=== PATIENT | female | born 1945 | race African-American/Black ===

== ENCOUNTER → 2017-07-05 16:50 | Outpatient (CLI) | payer MEDICARE, SELFPAY ==
[2017-07-05 17:23] LABS: Absolute Lymphocyte Count 1.88 X10^3/ul (0.83-4.51); Basophil# 0.02 X10^3/uL; Basophil% 0.4 % (0-1); Eosinophil# 0.07 X10^3/uL; Eosinophils% 1.3 % (0-5); Hematocrit 39.7 % (37-47); Hemoglobin 12.8 g/dl (12.0-15.0); Lymphocyte # 1.88 X10^3/ul (4.0); Lymphocyte % 34.3 % (19-41); Mean Corp Hgb Conc 32.2 g/gl (32-36); Mean Corpuscular Hgb 29.8 pg (27.0-32.0); Mean Corpuscular Volume 92.3 fL (81-99); Mean Platelet Vol. 12.4 fl (6.2-12.0); Monocyte# 0.49 X10^3/uL; Monocyte% 8.9 % (0-10); Neutrophil # 3.01 X10^3/uL (2.7-7.7); Neutrophil % 54.9 % (47-70); Platelet Count 163 K/mm3 (150-450); RBC Distribution Width CV 13.1 % (11.6-14.6); RBC Distribution Width SD 43.4 fl (35.1-43.9); White Blood Count 5.5 K/mm3 (4.4-11.0)
[2017-07-05 17:32] LABS: POSITIVE COUNT NO; POSITIVE DIFFERENTIAL NO; POSITIVE MORPHOLOGY NO
[2017-07-05 17:36] LABS: ALB/GLOB Ratio 1.1 RATIO (0.9-2.4); AST(SGOT) 18 U/L (15-37); Alanine Aminotransfer ALT/SGPT 19 U/L (13-56); Albumin, Serum 3.4 g/dL (3.2-5.0); Alkaline Phosphatase 105 U/L (45-117); Anion Gap 7 (5-15); BUN 10 mg/dL (7-18); BUN/Creat Ratio 9.8 RATIO (10-20); Calcium,Total 8.6 mg/dL (8.5-10.1); Chloride 107 mmol/L (98-107); Creatinine, Serum 1.02 mg/dL (0.55-1.02); EST Glomerular Filtration Rate 57 mL/min (>60); Est Glom Filt Rate - Afr Amer 68 mL/min (>60); Globulin 3.2 g/dL (2.2-4.2); Glucose 106 mg/dL (74-106); Potassium 3.6 mmol/L (3.5-5.1); Protein, Total 6.6 g/dL (6.4-8.2); Sodium Level 144 mmol/L (136-145); Thyroid Stim Hormone (TSH) 1.39 uIU/mL (0.358-3.74); Uric Acid 3.7 mg/dL (2.6-6.0)
[2017-07-07 10:35] LABS: Vitamin D,25 Hydroxy 23.5 ng/mL (19.95-100.01)
== END ==
PROVIDERS: Family Provider Family Medicine Geriatric Medicine; PCP Family Medicine Geriatric Medicine; Visit Provider Family Medicine Geriatric Medicine
DX: E55.9 Vitamin D deficiency, unspecified (principal); I10 Essential (primary) hypertension; M10.9 Gout, unspecified
CPT/HCPCS: 36415; 80053; 82306; 84443; 84550; 85025

== ENCOUNTER → 2017-10-19 16:40 | Outpatient (CLI) | payer MEDICARE, SELFPAY ==
--- NOTE | 2017-10-19 16:40 | DT_ITS ---
This patient was seen during an EMR downtime October 16, 2017 - October 23, 2017. This patient may have a combination of paper and electronic documentation or all paper documentation. All documentation is viewable within the e-chart portion of [employer] for each patient visit.
== END ==
PROVIDERS: Family Provider Family Medicine Geriatric Medicine; PCP Family Medicine Geriatric Medicine; Visit Provider Family Medicine Geriatric Medicine
DX: N39.0 Urinary tract infection, site not specified (principal)
CPT/HCPCS: 87077; 87086; 87088; 87186

== ENCOUNTER → 2018-03-29 13:54 | Outpatient (CLI) | payer MEDICARE, SELFPAY ==
[2017-03-14 15:26] VITALS: BMI 19.7
[2018-03-29 14:15] LABS: Absolute Lymphocyte Count 2.12 X10^3/ul (0.83-4.51); Absolute Neutrophil Count 2.8 X10^3/uL (2.0-7.7); Basophil# 0.03 X10^3/uL; Basophil% 0.6 % (0-1); Eosinophil# 0.06 X10^3/uL; Eosinophils% 1.1 % (0-5); Hematocrit 42.9 % (37-47); Hemoglobin 13.5 g/dl (12.0-15.0); Lymphocyte # 2.12 X10^3/ul (4.0); Mean Corp Hgb Conc 31.5 g/gl (32-36); Mean Corpuscular Hgb 29.2 pg (27.0-32.0); Mean Corpuscular Volume 92.9 fL (81-99); Mean Platelet Vol. 11.9 fl (6.2-12.0); Monocyte# 0.43 X10^3/uL; Monocyte% 7.9 % (0-10); Neutrophil # 2.79 X10^3/uL (2.7-7.7); Neutrophil % 51.2 % (47-70); Platelet Count 168 K/mm3 (150-450); RBC Distribution Width CV 12.9 % (11.6-14.6); RBC Distribution Width SD 42.9 fl (35.1-43.9); Red Blood Count 4.62 M/mm3 (4.2-5.4); White Blood Count 5.4 K/mm3 (4.4-11.0)
[2018-03-29 14:20] LABS: POSITIVE COUNT NO; POSITIVE DIFFERENTIAL NO; POSITIVE MORPHOLOGY NO
[2018-03-29 14:39] LABS: ALB/GLOB Ratio 1.1 RATIO (0.9-2.4); AST(SGOT) 24 U/L (15-37); Alanine Aminotransfer ALT/SGPT 20 U/L (13-56); Albumin, Serum 3.7 g/dL (3.2-5.0); Alkaline Phosphatase 114 U/L (45-117); Anion Gap 8 (5-15); BUN 8 mg/dL (7-18); BUN/Creat Ratio 7.3 RATIO (10-20); Calcium,Total 9.2 mg/dL (8.5-10.1); Chloride 102 mmol/L (98-107); Creatinine, Serum 1.09 mg/dL (0.55-1.02); EST Glomerular Filtration Rate 52 mL/min (>60); Est Glom Filt Rate - Afr Amer 63 mL/min (>60); Globulin 3.4 g/dL (2.2-4.2); Glucose 79 mg/dL (74-106); Potassium 3.7 mmol/L (3.5-5.1); Protein, Total 7.1 g/dL (6.4-8.2); Sodium Level 139 mmol/L (136-145)
== END ==
PROVIDERS: Family Provider Family Medicine Geriatric Medicine; PCP Family Medicine Geriatric Medicine; Visit Provider Family Medicine Geriatric Medicine
DX: N39.0 Urinary tract infection, site not specified (principal); R10.9 Unspecified abdominal pain
CPT/HCPCS: 36415; 80053; 85025; 87086

== ENCOUNTER → 2018-03-29 16:46 | Outpatient (CLI) | payer MEDICARE, SELFPAY ==
--- NOTE | 2018-03-29 16:49 | CT_ITS ---
STUDY: CT ABDOMEN AND PELVIS WITHOUT CONTRAST REASON FOR EXAM: Female, 72 years old. No pelvic pain RADIATION DOSAGE (If Supplied By Facility): CTDIvol = ( 6.40 ) mGy, DLP = ( 265.18 ) mGycm TECHNIQUE: Transaxial images were obtained from the dome of the diaphragm to the symphysis pubis with oral contrast, and without intravenous contrast. Sagittal and coronal images were reconstructed. Individualized dose optimization techniques were used for this CT. COMPARISON: 2014 FINDINGS: The visualized lung bases are unremarkable. The visualized portions of the heart are within normal limits. Normal liver. There are surgical clips in the gallbladder fossa consistent with a prior cholecystectomy. Normal spleen. Normal pancreas. Normal bilateral adrenal glands. Normal right kidney. Normal left kidney. Normal visualized stomach. Normal small intestine. There are multiple colonic diverticula consistent with diverticulosis. There is non-visualization of the appendix. Normal abdominal aorta. Normal inferior vena cava. Normal retroperitoneum. Normal urinary bladder. There is absence of the uterus consistent with a prior hysterectomy. Normal abdominal wall. There are diffuse degenerative changes of the visualized lumbar spine. CT/Abdomen/Pelvis without Cont IMPRESSION: No suspicious solid organ abnormality, previous cholecystectomy. No CT evidence of an acute inflammatory process Colonic diverticulosis No free intraperitoneal fluid, air, or suspicious adenopathy Degenerative bony changes Electronically Signed: Evans Snell MD at 17:40 EST , Service support ,
== END ==
LOC: CT 16:48
PROVIDERS: Family Provider Family Medicine Geriatric Medicine; PCP Family Medicine Geriatric Medicine; Referring Provider Family Medicine Geriatric Medicine; Visit Provider Family Medicine Geriatric Medicine
DX: R10.9 Unspecified abdominal pain (principal); N39.0 Urinary tract infection, site not specified
CPT/HCPCS: 36415; 74176; 80053; 85025; 87086; 87088

== ENCOUNTER 2018-06-07 16:33 | Emergency (ER) | payer MEDICARE, SELFPAY ==
[2018-04-12 16:55] VITALS: BMI 19.9
[2018-06-07 16:35] VITALS: BP 140/90; PULSE 74; RESP 16; TEMP 36.7; O2SAT 99; BMI 19.4
--- NOTE | 2018-06-07 16:46 | CT_ITS ---
STUDY: CT ABDOMEN AND PELVIS WITHOUT CONTRAST REASON FOR EXAM: Female, 72 years old. Abdominal pain. Vaginal pain RADIATION DOSAGE (If Supplied By Facility): CTDIvol = ( 6.08 ) mGy, DLP = ( 261.09 ) mGycm TECHNIQUE: Transaxial images were obtained from the dome of the diaphragm to the symphysis pubis without oral contrast, and without intravenous contrast. Sagittal and coronal images were reconstructed. Individualized dose optimization techniques were used for this CT. COMPARISON: CT of the abdomen and pelvis, March 29, 2018. FINDINGS: The visualized lung bases are unremarkable. The visualized portions of the heart are within normal limits. Normal liver. There are surgical clips in the gallbladder fossa consistent with a prior cholecystectomy. There are multiple benign calcified granulomata of the spleen. Normal pancreas. Normal bilateral adrenal glands. Normal right kidney. Normal left kidney. Normal visualized stomach. Normal small intestine. There is diffuse colonic diverticuli without acute inflammatory change. The appendix is visualized and appears normal. There is diffuse atherosclerotic calcification of the abdominal aorta, without a demonstrated aneurysm. Normal inferior vena cava. Normal retroperitoneum. Normal urinary bladder. Normal vaginal cuff. There is no pelvic lymphadenopathy or mass. No free air or free fluid is seen within the peritoneal cavity. Normal abdominal wall. There is stable degenerative changes of the lumbar spine. CT/Abdomen/Pelvis without Cont IMPRESSION: 1. No acute intra-abdominal or pelvic process or interval change. 2. Diffuse diverticulosis without acute inflammatory change. 3. Status post hysterectomy and cholecystectomy. 4. Atherosclerotic changes of the abdominal aorta. 5. Degenerative changes of the lumbar spine. Electronically Signed: Philippe Mckinley DO at 19:24 EST Tel [phone], Service support ,
[2018-06-07 17:28] LABS: Bacteria 0 SEEN /hpf (None Seen); Mucous, Urine 0 SEEN /hpf (<or=2+); Squamous Epithelial Cells - UA 0 SEEN /hpf (5-10)
[2018-06-07 17:37] VITALS: BP 189/89; PULSE 65; RESP 16; TEMP 37.1; O2SAT 100
--- NOTE | 2018-06-07 17:45 | ED.VISSUMM ---
- ER Visit Summary Date of Service: 06/07/18 Chief Complaint: Abdominal pain History of Present Illness: The patient is a 72 F who has had abdominal pain for a month. She states that she has a burning in the lower part of her abdomen that radiates down into her vaginal area. She denies nausea, vomiting, diarrhea or constipation. She has not had any dysuria. She states she has had some vaginal bleeding that happened for about a week. She states it has been intermittent. She has had a hysterectomy and a cholecystectomy in the past. She denies any fevers. Physical Examination: Vital signs reviewed. HEENT exam unremarkable. Heart is regular rate and rhythm without murmurs. Lungs are clear to auscultation. Abdomen is soft with tenderness in the suprapubic area. Pelvic exam/speculum exam with female research & analytics manager reveals no vaginal bleeding. There are no vaginal or vulvar lesions. extremities reveal no edema. Skin exam normal. Neurologic exam normal. Test Results: Laboratory studies normal including hemoglobin. Urinalysis reveals 0-5 white blood cells. CAT scan reveals chronic changes. Emergency Department Course and Treatment: I am unclear as to the etiology of this bleeding. She is adamant that coming from her vaginal area. I do not see any sources of bleeding at this time. Is possible it could be from atrophic vaginitis. She needs to follow-up with an WET PROCESS ASSISTANT HEAD MILLER. I will put her on a couple of days of antibiotics due to the burning pain in her lower abdomen. Treatment Plan: [] Disposition: Discharge Impression: UTI This note was generated with [employer] dictation software. It may contain incorrect words, spelling, and punctuation that were not noted in review of the chart prior to signing ED Disposition - Plan for ED Patient: Chief Complaint: Complaint Referrals: Eliu Swanson Chi, MD [Primary Care Provider] -
[2018-06-07 17:47] LABS: Color, Urine Yellow (Yellow); Glucose, Dipstick Normal (Normal); Ketone-Dipstick Negative (Negative); Leukocyte Esterase-Dipstick 25 /ul (Negative); Nitrite-Dipstick Negative (Negative); Occult Blood-Urine 10 /ul (Negative); Protein-Dipstick Negative (Negative); Urine Bilirubin Dipstick Negative (Negative); Urine Clarity Clear (Clear); Urine Urobilinogen Normal (Normal)
[2018-06-07 17:53] LABS: Red Blood Cells-Urine 0-5 SEEN /hpf (0-5); White Blood Cells 0-5 SEEN /hpf (0-5)
[2018-06-07 18:07] VITALS: BP 187/66; PULSE 85; RESP 11; TEMP 36.7; O2SAT 96
[2018-06-07 18:12] LABS: Absolute Lymphocyte Count 2.48 X10^3/ul (0.83-4.51); Absolute Neutrophil Count 2.2 X10^3/uL (2.0-7.7); Basophil# 0.02 X10^3/uL; Basophil% 0.4 % (0-1); Eosinophil# 0.09 X10^3/uL; Eosinophils% 1.7 % (0-5); Hematocrit 40.8 % (37-47); Hemoglobin 13.3 g/dl (12.0-15.0); Lymphocyte # 2.48 X10^3/ul (4.0); Lymphocyte % 47.4 % (19-41); Mean Corp Hgb Conc 32.6 g/gl (32-36); Mean Corpuscular Hgb 30.1 pg (27.0-32.0); Mean Corpuscular Volume 92.3 fL (81-99); Mean Platelet Vol. 13.3 fl (6.2-12.0); Monocyte# 0.39 X10^3/uL; Monocyte% 7.5 % (0-10); Neutrophil # 2.23 X10^3/uL (2.7-7.7); Neutrophil % 42.6 % (47-70); Platelet Count 146 K/mm3 (150-450); RBC Distribution Width SD 43.7 fl (35.1-43.9); Red Blood Count 4.42 M/mm3 (4.2-5.4); White Blood Count 5.2 K/mm3 (4.4-11.0)
[2018-06-07 18:15] LABS: Differential Indicated SCAN CRITERIA MET; POSITIVE COUNT YES; POSITIVE DIFFERENTIAL NO; POSITIVE MORPHOLOGY NO
[2018-06-07 18:22] LABS: AST(SGOT) 36 U/L (15-37); Alanine Aminotransfer ALT/SGPT 19 U/L (13-56); Albumin, Serum 3.4 g/dL (3.2-5.0); Alkaline Phosphatase 116 U/L (45-117); Anion Gap 6 (5-15); BUN 11 mg/dL (7-18); BUN/Creat Ratio 11.7 RATIO (10-20); Calcium,Total 8.7 mg/dL (8.5-10.1); Chloride 109 mmol/L (98-107); Creatinine, Serum 0.94 mg/dL (0.55-1.02); EST Glomerular Filtration Rate 62 mL/min (>60); Est Glom Filt Rate - Afr Amer 75 mL/min (>60); Estimated Creatinine Clearance 40.61 ml/min; Globulin 3.5 g/dL (2.2-4.2); Glucose 86 mg/dL (74-106); Potassium 4.4 mmol/L (3.5-5.1); Protein, Total 6.9 g/dL (6.4-8.2); Sodium Level 142 mmol/L (136-145)
[2018-06-07 18:32] LABS: Anisocytosis RARE; Macrocytosis RARE; Platelet Estimate ADEQUATE (ADEQ); Platelet Morphology LARGE
[2018-06-07 18:34] VITALS: BP 143/101; O2SAT 100
[2018-06-07 19:23] VITALS: BP 179/82; PULSE 66; RESP 16; TEMP 36.7; O2SAT 100
--- NOTE | 2018-06-07 19:29 | ED.DEP ---
ED Disposition - Plan for ED Patient: Disposition: Home or Assisted Living Chief Complaint: Complaint Instructions: ED UTI Cystitis Female Prescriptions: Ciprofloxacin [Cipro] 500 mg PO BID #6 tab Referrals: Eliu Swanson Chi, MD [Primary Care Provider] -
[2018-06-07] MEDS: Ciprofloxacin 500 MG Tablet PO (19:45)
[2018-06-07 19:47] VITALS: BP 168/80; PULSE 62; RESP 16; O2SAT 100
== END 2018-06-07 19:47 | disposition home or self-care (01) ==
PROVIDERS: Emergency Provider Emergency Medicine; Family Provider Family Medicine Geriatric Medicine; PCP Family Medicine Geriatric Medicine
DX: N39.0 Urinary tract infection, site not specified (principal); N93.9 Abnormal uterine and vaginal bleeding, unspecified; Z90.49 Acquired absence of other specified parts of digestive tract; Z90.710 Acquired absence of both cervix and uterus
CPT/HCPCS: 74176; 80053; 81001; 85025; 99285; A4216

== ENCOUNTER → 2018-07-02 15:43 | Outpatient (CLI) | payer MEDICARE, SELFPAY ==
[2018-06-07 16:35] VITALS: BMI 19.4
[2018-07-02 16:56] LABS: Absolute Neutrophil Count 2.7 X10^3/uL (2.0-7.7); Basophil# 0.02 X10^3/uL; Basophil% 0.4 % (0-1); Eosinophil# 0.08 X10^3/uL; Eosinophils% 1.4 % (0-5); Hematocrit 39.8 % (37-47); Hemoglobin 12.6 g/dl (12.0-15.0); Lymphocyte % 39.7 % (19-41); Mean Corp Hgb Conc 31.7 g/gl (32-36); Mean Corpuscular Hgb 29.5 pg (27.0-32.0); Mean Corpuscular Volume 93.2 fL (81-99); Monocyte# 0.56 X10^3/uL; Monocyte% 10.1 % (0-10); Neutrophil # 2.68 X10^3/uL (2.7-7.7); Neutrophil % 48.4 % (47-70); Platelet Count 173 K/mm3 (150-450); RBC Distribution Width CV 13.2 % (11.6-14.6); RBC Distribution Width SD 44.6 fl (35.1-43.9); Red Blood Count 4.27 M/mm3 (4.2-5.4); White Blood Count 5.5 K/mm3 (4.4-11.0)
[2018-07-02 16:57] LABS: POSITIVE COUNT NO; POSITIVE DIFFERENTIAL NO; POSITIVE MORPHOLOGY NO
[2018-07-02 17:17] LABS: Vitamin D,25 Hydroxy 16.3 ng/mL (29.95-100.01)
[2018-07-02 17:23] LABS: AST(SGOT) 18 U/L (15-37); Alanine Aminotransfer ALT/SGPT 23 U/L (13-56); Albumin, Serum 3.4 g/dL (3.2-5.0); Alkaline Phosphatase 114 U/L (45-117); Anion Gap 9 (5-15); BUN 15 mg/dL (7-18); BUN/Creat Ratio 15.4 RATIO (10-20); Calcium,Total 8.2 mg/dL (8.5-10.1); Chloride 107 mmol/L (98-107); Creatinine, Serum 0.97 mg/dL (0.55-1.02); EST Glomerular Filtration Rate 60 mL/min (>60); Est Glom Filt Rate - Afr Amer 72 mL/min (>60); Globulin 3.3 g/dL (2.2-4.2); Glucose 128 mg/dL (74-106); Potassium 3.8 mmol/L (3.5-5.1); Protein, Total 6.7 g/dL (6.4-8.2); Sodium Level 138 mmol/L (136-145); Thyroid Stim Hormone (TSH) 1.18 uIU/mL (0.358-3.74); Uric Acid 3.4 mg/dL (2.6-6.0)
== END ==
PROVIDERS: Family Provider Family Medicine Geriatric Medicine; PCP Family Medicine Geriatric Medicine; Visit Provider Family Medicine Geriatric Medicine
DX: E55.9 Vitamin D deficiency, unspecified (principal); M10.9 Gout, unspecified; I10 Essential (primary) hypertension; N39.0 Urinary tract infection, site not specified
CPT/HCPCS: 36415; 80053; 82306; 84443; 84550; 85025; 87077; 87086; 87088; 87186

== ENCOUNTER → 2018-08-23 16:30 | Outpatient (CLI) | payer MEDICARE, SELFPAY ==
--- NOTE | 2018-08-23 16:50 | RAD_ITS ---
STUDY: X-RAY - ABDOMEN/PELVIS REASON FOR EXAM: Female, 73 years old. Lower abdominal pain TECHNIQUE: 3 AP views COMPARISON: None. FINDINGS: Previous cholecystectomy. There is a moderate amount of colonic fecal material. There is no demonstrated free abdominal air. The visualized liver, spleen and kidneys are grossly normal in size and morphology. Normal soft tissue structures. There are diffuse degenerative changes of the visualized lumbar spine. RAD/Abd Inc Decub and/or Erect IMPRESSION: No acute findings, retained stool Electronically Signed: Evans Snell MD at 17:06 EDT , Service support ,
== END ==
PROVIDERS: Family Provider Family Medicine Geriatric Medicine; PCP Family Medicine Geriatric Medicine; Referring Provider Family Medicine Geriatric Medicine; Visit Provider Family Medicine Geriatric Medicine
DX: N39.0 Urinary tract infection, site not specified (principal); R10.9 Unspecified abdominal pain
CPT/HCPCS: 74019; 87086; 87088

== ENCOUNTER 2018-08-25 17:31 | Emergency (ER) | payer MEDICARE, SELFPAY ==
[2018-08-25 17:32] VITALS: BP 154/83; PULSE 72; RESP 16; TEMP 36.7; O2SAT 100; BMI 19.8
--- NOTE | 2018-08-25 18:17 | ED.VIS.DENTA ---
History of Present Illness Chief Complaint: Dental Informant: Patient Onset: Days Context: Sudden Onset Timing: Continuous Quality: Pain right lower molar Location: Right lower molar Current Severity: Mild Maximum Severity: Severe Worsened by: Cold and air Relieved by: - - Nothing Associated Symptoms: - - Patient denies all of these symptoms Narrative: Patient localizes pain to the right lower molar. She denies fever, chills or night sweats. She denies atraumatic fever, murmur, SBE, IV drug use or being immune suppressed. She denies change in voice. Denies drooling. Denies difficulty breathing. She denies inability to open or close her mouth completely. 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: Chronic (2) Segmental and somatic dysfunction of lumbar region Status: Chronic (3) Segmental and somatic dysfunction of thoracic region Status: Chronic Past Medical History - Allergies and Home Meds Allergies/Adverse Reactions: Allergies Iodinated Contrast- Oral and IV Dye [Iodinated Contrast Media - IV Dye] Allergy (Unknown, Verified 08/25/18 17:34) Unknown Penicillins Allergy (Verified 08/25/18 17:34) Swelling Primary Care Physician: Eliu Swanson Chi, MD [Primary Care Provider] - Prior records reviewed: No Surgical History: noncontributory Lives: With Family Smoking Status: Never smoker Alcohol: None Review of Systems General: Denies: Chills, Fever, Malaise, Subjective, Sweats, Weight loss Eyes: Denies: Visual changes - bilaterally, Blurred Vision - bilaterally, Diplopia ENT: Denies: Bilateral ear pain, Rhinorrhea, Sore throat Cardiovascular: Denies: Chest pain Respiratory: Denies: Dyspnea Gastrointestinal: Denies: Nausea, Vomiting Skin: Denies: Rash Neurological: Denies: Headache Hematologic: Denies: Easy bruising, Easy bleeding Physical Exam Vital Signs/Narrative: Vital Signs Temp Pulse Resp BP Pulse Ox 08/25/18 17:32 98.0 F 72 16 154/83 H 100 Inital Vital Signs reviewed: Yes General: Well nourished, Well developed Head: Normocephalic, Atraumatic ENT: Moist mucous membranes, Nasal congestion, No rhinorrhea, TM's clear Mouth/Throat: Normal oral mucosa, Normal posterior oropharynx, Normal Stensen's duct, Focal dental decay, Focal gum swelling, Gingivitis, Tenderness on tooth percussion. Negative for: Normal inspection lips/gums, No dental tenderness, No sublingual edema, Apthous ulcer, Dental trauma, Trismus, Widespread dental decay Neck: Supple, No lymphadenopathy, Nontender, No JVD Cardiovascular: Regular rate, Regular rhythm, No murmurs, Normal S1, Normal S2 Respiratory: No distress, CTA bilaterally, Chest nontender Skin: Normal color, No rash. Negative for: Cyanosis, Jaundice Neurological: Alert, Oriented x3, Cranial nerves II-XII grossly intact, Normal Strength, Normal Sensation Diagnostic/Tx/Re-eval - Medical Decision Making Patient has decay of the second right lower molar with exposure of pulp. The tooth has eroded down to the gumline. There is inflammation of the gum. There is no evidence of submandibular lymphadenopathy. Trachea is midline. There is no stridor. There is no trismus. She was treated with opiate analgesia and antibiotics. She reports allergy to penicillin. She was instructed to follow-up with her dentist. ED Disposition - Plan for ED Patient: Disposition: Home or Assisted Living Diagnosis: Dental abscess Instructions: ED Abscess Dental Prescriptions: Hydrocodone Bitart/Apap 5-325 [[place] 5MG-325MG] 1 tablet PO Q6H PRN PRN 3 Days #10 tablet PRN Reason: Pain Clindamycin HCl [Cleocin] 300 mg PO Q6H #28 capsule Referrals: Eliu Swanson Chi, MD [Primary Care Provider] - Additional Instructions: Your prescription was electronically transmitted to [facility] pharmacy on back [facility]. Call your dentist on Monday to be seen within the next 5-7 days.
--- NOTE | 2018-08-25 18:21 | ED.DCSUM_ITS ---
History of Present Illness Chief Complaint: Dental Informant: Patient Onset: Days Context: Sudden Onset Timing: Continuous Quality: Pain right lower molar Location: Right lower molar Current Severity: Mild Maximum Severity: Severe Worsened by: Cold and air Relieved by: - - Nothing Associated Symptoms: - - Patient denies all of these symptoms Narrative: Patient localizes pain to the right lower molar. She denies fever, chills or night sweats. She denies atraumatic fever, murmur, SBE, IV drug use or being immune suppressed. She denies change in voice. Denies drooling. Denies difficulty breathing. She denies inability to open or close her mouth completely. 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: Chronic (2) Segmental and somatic dysfunction of lumbar region Status: Chronic (3) Segmental and somatic dysfunction of thoracic region Status: Chronic Past Medical History - Allergies and Home Meds Allergies/Adverse Reactions: Allergies Iodinated Contrast- Oral and IV Dye [Iodinated Contrast Media - IV Dye] Allergy (Unknown, Verified 08/25/18 17:34) Unknown Penicillins Allergy (Verified 08/25/18 17:34) Swelling Primary Care Physician: Eliu Swanson Chi, MD [Primary Care Provider] - Prior records reviewed: No Surgical History: noncontributory Lives: With Family Smoking Status: Never smoker Alcohol: None Review of Systems General: Denies: Chills, Fever, Malaise, Subjective, Sweats, Weight loss Eyes: Denies: Visual changes - bilaterally, Blurred Vision - bilaterally, Diplopia ENT: Denies: Bilateral ear pain, Rhinorrhea, Sore throat Cardiovascular: Denies: Chest pain Respiratory: Denies: Dyspnea Gastrointestinal: Denies: Nausea, Vomiting Skin: Denies: Rash Neurological: Denies: Headache Hematologic: Denies: Easy bruising, Easy bleeding Physical Exam Vital Signs/Narrative: Vital Signs Temp Pulse Resp BP Pulse Ox 08/25/18 17:32 98.0 F 72 16 154/83 H 100 Inital Vital Signs reviewed: Yes General: Well nourished, Well developed Head: Normocephalic, Atraumatic ENT: Moist mucous membranes, Nasal congestion, No rhinorrhea, TM's clear Mouth/Throat: Normal oral mucosa, Normal posterior oropharynx, Normal Stensen's duct, Focal dental decay, Focal gum swelling, Gingivitis, Tenderness on tooth percussion. Negative for: Normal inspection lips/gums, No dental tenderness, No sublingual edema, Apthous ulcer, Dental trauma, Trismus, Widespread dental decay Neck: Supple, No lymphadenopathy, Nontender, No JVD Cardiovascular: Regular rate, Regular rhythm, No murmurs, Normal S1, Normal S2 Respiratory: No distress, CTA bilaterally, Chest nontender Skin: Normal color, No rash. Negative for: Cyanosis, Jaundice Neurological: Alert, Oriented x3, Cranial nerves II-XII grossly intact, Normal Strength, Normal Sensation Diagnostic/Tx/Re-eval - Medical Decision Making Patient has decay of the second right lower molar with exposure of pulp. The tooth has eroded down to the gumline. There is inflammation of the gum. There is no evidence of submandibular lymphadenopathy. Trachea is midline. There is no stridor. There is no trismus. She was treated with opiate analgesia and antibiotics. She reports allergy to penicillin. She was instructed to follow- up with her dentist. ED Disposition - Plan for ED Patient: Disposition: Home or Assisted Living Diagnosis: Dental abscess Instructions: ED Abscess Dental Prescriptions: Hydrocodone Bitart/Apap 5-325 [[place] 5MG-325MG] 1 tablet PO Q6H PRN PRN 3 Days #10 tablet PRN Reason: Pain Clindamycin HCl [Cleocin] 300 mg PO Q6H #28 capsule Referrals: Eliu Swanson Chi, MD [Primary Care Provider] - Additional Instructions: Your prescription was electronically transmitted to [facility] pharmacy on back [facility]. Call your dentist on Monday to be seen within the next 5-7 days.
[2018-08-25] MEDS: HYDROcodone Bitartrate/Apap 5/325 Tablet PO (18:38)
[2018-08-25 19:02] VITALS: PULSE 72; RESP 17; O2SAT 99
== END 2018-08-25 19:03 | disposition home or self-care (01) ==
PROVIDERS: Emergency Provider Emergency Medicine; Family Provider Family Medicine Geriatric Medicine; PCP Family Medicine Geriatric Medicine
DX: K04.7 Periapical abscess without sinus (principal); K02.9 Dental caries, unspecified; K05.10 Chronic gingivitis, plaque induced; M99.01 Segmental and somatic dysfunction of cervical region; M99.03 Segmental and somatic dysfunction of lumbar region; M99.02 Segmental and somatic dysfunction of thoracic region
CPT/HCPCS: 99283

== ENCOUNTER 2018-12-08 18:42 | Emergency (ER) | payer MEDICARE, SELFPAY ==
[2018-12-08 18:43] VITALS: BP 149/77; PULSE 72; RESP 16; TEMP 36.4; O2SAT 100; BMI 21.4
--- NOTE | 2018-12-08 19:32 | CT_ITS ---
HISTORY: LOWER ABD PAIN, PRESSURE WITH URINATION, BLOOD IN URINE, HX [place] TECHNIQUE: Helically acquired images were obtained of the abdomen and pelvis without oral or IV contrast. A radiation dose optimization technique was used for this scan. COMPARISON: 06/07/18 CT abdomen and pelvis. FINDINGS: # of images incl. paperwork: 366 LOWER CHEST: No acute or concerning findings lung bases. LIVER: Homogeneous. No focal mass. GALLBLADDER AND BILIARY TREE: Status post cholecystectomy. No intra- or extrahepatic biliary ductal dilation. KIDNEYS AND URETERS: Normal renal size and position. No hydronephrosis. ADRENAL GLANDS: Non-enlarged. SPLEEN: Normal size, no mass. PANCREAS: No pancreatic inflammation or mass. BOWEL: Normal appendix. No obstruction or inflammation of the bowel. Colonic diverticulosis particularly of the descending and sigmoid colon, no diverticulitis. LYMPH NODES: No enlarged mesenteric or retroperitoneal lymph nodes. PERITONEUM: No ascites or free air. No other fluid collection. VESSELS: No abdominal aortic aneurysm. Mild atherosclerosis. URINARY BLADDER: Unremarkable. REPRODUCTIVE ORGANS: Status post hysterectomy. Ovaries unremarkable. ABDOMINAL WALL: No concerning findings. Calcifications in the gluteal subcutaneous fat bilaterally probably from previous injections. BONES: No acute osseous abnormality. Degenerative changes lower lumbar spine. CT/Abdomen/Pelvis without Cont IMPRESSION: No acute findings. Individualized dose optimization techniques were used for this CT. at 2034 Reported and signed by: Alvarado Mullen MD Electronically Signed: Alvarado Mullen, at 20:33 EDT Tel , Service support ,
[2018-12-08] MEDS: 0.9% Normal Saline 1,000 ML 1000 ML IV (19:51)
[2018-12-08 19:53] LABS: Absolute Neutrophil Count 2.2 X10^3/uL (2.0-7.7); Basophil# 0.03 X10^3/uL; Basophil% 0.6 % (0-1); Eosinophil# 0.07 X10^3/uL; Eosinophils% 1.5 % (0-5); Hematocrit 40.1 % (37-47); Lymphocyte % 40.4 % (19-41); Mean Corp Hgb Conc 32.4 g/dL (32-36); Mean Corpuscular Hgb 30.8 pg (27.0-32.0); Mean Platelet Vol. 11.6 fl (6.2-12.0); Monocyte# 0.48 X10^3/uL; Monocyte% 10.2 % (0-10); NRBC Flagged by Analyzer 0 % (0-5); Neutrophil # 2.21 X10^3/uL (2.7-7.7); Neutrophil % 47.1 % (47-70); Platelet Count 150 K/mm3 (150-450); RBC Distribution Width SD 45.6 fl (35.1-43.9); Red Blood Count 4.22 M/mm3 (4.2-5.4); White Blood Count 4.7 K/mm3 (4.4-11.0)
[2018-12-08 20:02] LABS: Bacteria 0 SEEN /hpf (None Seen); Mucous, Urine 0 SEEN /hpf (<or=2+); Red Blood Cells-Urine 0 SEEN /hpf (0-5); Squamous Epithelial Cells - UA 0 SEEN /hpf (5-10)
[2018-12-08 20:03] LABS: Color, Urine Yellow (Yellow); Glucose, Dipstick Normal (Normal); Ketone-Dipstick Negative (Negative); Leukocyte Esterase-Dipstick 100 /ul (Negative); Nitrite-Dipstick Negative (Negative); Occult Blood-Urine 25 /ul (Negative); Protein-Dipstick Negative (Negative); Urine Bilirubin Dipstick Negative (Negative); Urine Clarity Clear (Clear); Urine Urobilinogen Normal (Normal)
[2018-12-08 20:13] LABS: White Blood Cells 0-5 SEEN /hpf (0-5)
[2018-12-08 20:18] LABS: ALB/GLOB Ratio 1.1 RATIO (0.9-2.4); AST(SGOT) 22 U/L (15-37); Alanine Aminotransfer ALT/SGPT 22 U/L (13-56); Albumin, Serum 3.4 g/dL (3.2-5.0); Alkaline Phosphatase 128 U/L (45-117); Anion Gap 4 (5-15); BUN 13 mg/dL (7-18); BUN/Creat Ratio 13.6 RATIO (10-20); Calcium,Total 8.7 mg/dL (8.5-10.1); Chloride 105 mmol/L (98-107); Creatinine, Serum 0.96 mg/dL (0.55-1.02); EST Glomerular Filtration Rate 61 mL/min (>60); Est Glom Filt Rate - Afr Amer 73 mL/min (>60); Estimated Creatinine Clearance 40.66 ml/min; Glucose 90 mg/dL (74-106); Lipase 188 U/L (73-393); Potassium 4.2 mmol/L (3.5-5.1); Protein, Total 6.4 g/dL (6.4-8.2); Sodium Level 139 mmol/L (136-145)
--- NOTE | 2018-12-08 20:57 | ED.VISSUMM ---
- ER Visit Summary Date of Service: 12/08/18 Chief Complaint: Abdominal pain History of Present Illness: The patient is a [address] Swanson. She reports that she has lower abdominal pain that began 2 weeks ago. Is gradually gotten worse. Is an aching, pressure that is 7 out of 10 worsened to 10 currently. Is worsened by movement relieved by remaining still. She reports that she began passing blood in her urine today. She denies any dysuria or frequency. She also reports that she has been spotting today.. She is status post hysterectomy. Also complains of a brown vaginal discharge. Patient denies any fever or chills. No chest pain or shortness of breath. No headache, numbness, or weakness. Physical Examination: Vitals: Stable. Afebrile. General: Well-nourished and well-developed. Head: Normocephalic atraumatic. Neck: Supple, no lymphadenopathy. No JVD. Nontender. Cardiovascular: Regular rate and rhythm. No murmurs. Respiratory: No respiratory distress. Clear to auscultation bilaterally. Abdominal: Soft, moderate suprapubic tenderness to palpation, nondistended, normal bowel sounds. No guarding, rebound, or peritoneal signs. : Refused pelvic exam. Back: Nontender. Extremities: Nontender, no edema. Skin: Normal color, no rash. Neurologic: Alert and oriented ?3. Cranial nerves II through XII are intact. Normal strength and sensation. Psych: Normal affect. Test Results: CBC is normal. Chem-7 is normal. LFTs are marked for alk phos of 128. UA is negative. Clinical Impression(s) from Imaging Studies Abdomen/Pelvis CT 12/08/18 19:32 IMPRESSION: No acute findings. Individualized dose optimization techniques were used for this CT. at 2034 Reported and signed by: Alvarado Mullen MD Electronically Signed: Alvarado Mullen, at 20:33 EDT Tel , Service support , Emergency Department Course and Treatment: Patient refused pain or nausea medications. She is resting comfortably. She had a colonoscopy [address] Bunch. She is never had cystoscopy. Treatment Plan: At this time I do not have an expiration for the patient's symptoms. Given the vaginal discharge and spotting she will be treated for bacterial vaginitis. Instructed to follow-up with Dr. Culver this week for another exam. Follow-up with Dr. Swanson in 1 to 2 days for further evaluation of her abdominal pain. She will be discharged on Flagyl. Return to the emergency department for any worsening symptoms. Disposition: To home in improved and stable condition. Impression: 1. Abdominal pain, uncertain cause. 2. Vaginal bleeding. This note was generated with [employer] software. It may contain incorrect words, spelling, and punctuation that were not noted in review of the chart prior to signing ED Disposition - Plan for ED Patient: Instructions: Vaginal Infection: Bacterial Vaginosis Prescriptions: metroNIDAZOLE [Flagyl] 500 mg PO BID #14 tablet Ondansetron [Zofran Odt] 4 mg PO Q8H PRN PRN #10 tablet PRN Reason: Nausea Referrals: Christen Culver MD [STAFF PHYSICIAN] - 5-7 Days Eliu Swanson Chi, MD [Primary Care Provider] - 2 Days
== END 2018-12-08 21:25 | disposition home or self-care (01) ==
LOC: ED 19:42
PROVIDERS: Emergency Provider Emergency Medicine; Family Provider Family Medicine Geriatric Medicine; PCP Family Medicine Geriatric Medicine
DX: R10.30 Lower abdominal pain, unspecified (principal); N93.9 Abnormal uterine and vaginal bleeding, unspecified; N89.8 Other specified noninflammatory disorders of vagina; R31.9 Hematuria, unspecified; K21.9 Gastro-esophageal reflux disease without esophagitis; Z90.710 Acquired absence of both cervix and uterus
CPT/HCPCS: 74176; 80053; 81001; 83690; 85025; 96360; 99283; J7030; A4216

== ENCOUNTER 2018-12-17 19:12 | Emergency (ER) | payer MEDICARE, SELFPAY ==
[2018-12-17 19:13] VITALS: BP 159/90; PULSE 77; RESP 16; TEMP 36.1; BMI 17.9
--- NOTE | 2018-12-17 21:01 | EKG12_ITS ---
Test Reason : Blood Pressure : / mmHG Vent. Rate : 077 BPM Atrial Rate : 077 BPM P-R Int : 146 ms QRS Dur : 078 ms QT Int : 398 ms P-R-T Axes : 074 002 065 degrees QTc Int : 450 ms Normal sinus rhythm Possible Left atrial enlargement Left ventricular hypertrophy Cannot rule out Septal infarct , age undetermined Abnormal ECG Confirmed by WANDY MACHADO, GISSELL ([id number]), editor managing director SHERRI GALLO ([id number]) on 12/19/2018 10:14:04 AM Referred By: JOVON Confirmed By:GISSELL SABA MD
--- NOTE | 2018-12-17 21:01 | CT_ITS ---
STUDY: CT BRAIN WITHOUT CONTRAST REASON FOR EXAM: Female, 73 years old. Headache and confusion RADIATION DOSAGE (If Supplied By Facility): CTDIvol = ( 44.99 ) mGy, DLP = ( 748.30 ) mGycm TECHNIQUE: Transaxial CT imaging of the brain was performed without administration of intravenous contrast material. Individualized dose optimization techniques were used for this CT. COMPARISON: 04/12/2016 FINDINGS: Normal soft tissue structures. Normal calvarium. Right lens replacement. Normal size ventricles and extra-axial spaces for the patient's age. There are areas of decreased attenuation within the white matter tracts of the supratentorial brain, consistent with microvascular disease changes. Normal age-related changes of the basal ganglia. Normal brainstem. Normal cerebellum. There is no intracranial hemorrhage. There are no findings of an acute ischemic infarction. Normal visualized paranasal sinuses. CT/Brain/Head without Contrast IMPRESSION: No CT evidence of acute infarct or hemorrhage. If there is clinical concern for hyperacute ischemia that is not evident by CT, MRI should be considered if possible. Electronically Signed: Trever Wooten MD at 22:04 EDT Tel , Service support ,
--- NOTE | 2018-12-17 21:02 | ED.VISSUMM ---
- ER Visit Summary Date of Service: 12/17/18 Chief Complaint: Room spinning dizziness History of Present Illness: The patient is a 73 F history of hypertension kidney stone. Currently being treated for UTI on antibiotic. States about 1 to 2 hours prior to arrival she got room spinning dizziness. Denies any significant headache. No head trauma. No chest pain. He has had abdominal pain since she has been on the antibiotic. She was seen in the emergency department approximately a week ago and at that time had a negative CT of the abdomen. She denies fever or chills. She denies any hematemesis. She has had some vaginal bleeding over the last couple of weeks and has a upcoming appointment to see an [employer]IE [employer] MACHINE about that. She is also had some nausea and vomiting. No prior history of stroke or mini stroke. No numbness or weakness in upper or lower extremities. Worse with head movement. Physical Examination: Older female no acute distress. Vital signs are stable afebrile. 2 daughters at bedside. HEENT exam unremarkable. Normal speech. No facial droop. Pupils are round reactive light extra motions are intact. Neck nontender. Lungs clear to auscultation bilaterally. Heart regular rhythm no murmur. Abdomen is soft. There are no peritoneal signs. She has mild epigastric and left upper quadrant tenderness. She is moving all 4 extremities. They are neurovascularly intact. 5/5 campus security officer strength. Dorsi plantarflexion intact. Calves are nontender without edema. Neurologically she is awake and alert. She has no focal motor or sensory deficits. She has normal campus security officer strength. Normal fingertip to nose. Normal dorsi and plantar flexion. NIH score is 0. Normal speech. No facial droop. Test Results: CBC normal white count of 5. Hemoglobin 13. Chemistries normal normal creatinine and gap. Orthostatic vital signs negative. EKG sinus rhythm rate of 77 no signs of ND, ischemia or dysrhythmia. CT brain read by the radiologist and reviewed by me showed no acute abnormality. Emergency Department Course and Treatment: Patient with dizziness is consistent with vertigo. Is worse with head movement. Otherwise her exam is unremarkable other than abdominal pain which she has had and recently had a negative CT of the abdomen before. Patient will be treated with p.o. Valium. Repeat exam at 2300 patient is feeling much better. She is sleepy from the Valium but her dizziness is much improved. Exam remains normal. I went over all test results with her and her one daughter that is in the room at this time. They are comfortable with her being discharged. I did do ear exam of both ears are unremarkable. No wax impaction. TMs are normal. Treatment Plan: Antivert as needed for dizziness. Follow-up as needed. Return if worse Disposition: Discharge Impression: Acute dizziness and vertigo. This note was generated with [employer] dictation software. It may contain incorrect words, spelling, and punctuation that were not noted in review of the chart prior to signing ED Disposition - Plan for ED Patient: Referrals: Eliu Swanson Chi, MD [Primary Care Provider] -
[2018-12-17 21:13] VITALS: BP 149/87; PULSE 80; O2SAT 100
[2018-12-17] MEDS: diazePAM 5 MG Tablet PO (21:18)
[2018-12-17 21:26] LABS: Absolute Lymphocyte Count 1.74 X10^3/uL (0.83-4.51); Basophil# 0.04 X10^3/uL; Basophil% 0.7 % (0-1); Eosinophil# 0.06 X10^3/uL; Eosinophils% 1.1 % (0-5); Hematocrit 42.6 % (37-47); Hemoglobin 13.9 g/dL (12.0-15.0); Lymphocyte # 1.74 X10^3/ul (4.0); Lymphocyte % 32.3 % (19-41); Mean Corp Hgb Conc 32.6 g/dL (32-36); Mean Corpuscular Hgb 30.2 pg (27.0-32.0); Mean Corpuscular Volume 92.4 fL (81-99); Monocyte# 0.56 X10^3/uL; Monocyte% 10.4 % (0-10); NRBC Flagged by Analyzer 0 % (0-5); Neutrophil # 2.98 X10^3/uL (2.7-7.7); Neutrophil % 55.3 % (47-70); Platelet Count 157 K/mm3 (150-450); RBC Distribution Width CV 12.6 % (11.6-14.6); RBC Distribution Width SD 42.8 fl (35.1-43.9); Red Blood Count 4.61 M/mm3 (4.2-5.4); White Blood Count 5.4 K/mm3 (4.4-11.0)
[2018-12-17 21:47] LABS: Anion Gap 4 (5-15); BUN 20 mg/dL (7-18); BUN/Creat Ratio 19.4 RATIO (10-20); Chloride 106 mmol/L (98-107); Creatinine, Serum 1.03 mg/dL (0.55-1.02); EST Glomerular Filtration Rate 56 mL/min (>60); Est Glom Filt Rate - Afr Amer 67 mL/min (>60); Estimated Creatinine Clearance 33.66 ml/min; Glucose 94 mg/dL (74-106); Potassium 4.3 mmol/L (3.5-5.1); Sodium Level 140 mmol/L (136-145)
[2018-12-17 21:58] VITALS: BP 130/80; BP 145/86; BP 151/110; PULSE 72; PULSE 78; PULSE 80
--- NOTE | 2018-12-17 22:04 | ED.RN ---
pt weak in the knees when being stood up for orthos. bp taken 2m after sitting bp taken.
[2018-12-17 23:03] VITALS: BP 146/83; PULSE 65; O2SAT 100
--- NOTE | 2018-12-17 23:05 | ED.DEP ---
ED Disposition - Plan for ED Patient: Disposition: Home or Assisted Living Instructions: Benign Positional Vertigo Prescriptions: Meclizine HCl [Antivert] 25 mg PO 4X/DAY PRN PRN #20 tab PRN Reason: Dizziness Prescription Printed Referrals: Eliu Swanson Chi, MD [Primary Care Provider] - 3-5 Days if not improving Additional Instructions: 20 of fluids and rest. Antivert as needed for your dizziness which appears to be vertigo. Follow-up with your doctor if not improving. Return to the ER if you are feeling a lot worse or develop weakness in your arms or legs or trouble speaking but at this time there is no signs of stroke.
== END 2018-12-17 23:20 | disposition home or self-care (01) ==
PROVIDERS: Emergency Provider Emergency Medicine; Family Provider Family Medicine Geriatric Medicine; PCP Family Medicine Geriatric Medicine
DX: R42 Dizziness and giddiness (principal); N39.0 Urinary tract infection, site not specified; N95.0 Postmenopausal bleeding; I10 Essential (primary) hypertension; Z87.442 Personal history of urinary calculi; Z79.899 Other long term (current) drug therapy
CPT/HCPCS: 70450; 80048; 85025; 93005; 99284; A4216

== ENCOUNTER → 2019-01-03 | Outpatient (CLI) | payer MEDICARE, SELFPAY ==
[2018-12-17 19:13] VITALS: BMI 17.9
[2019-01-03 18:05] LABS: Absolute Lymphocyte Count 1.55 X10^3/uL (0.83-4.51); Absolute Neutrophil Count 2.5 X10^3/uL (2.0-7.7); Basophil# 0.03 X10^3/uL; Basophil% 0.7 % (0-1); Eosinophil# 0.05 X10^3/uL; Eosinophils% 1.1 % (0-5); Hematocrit 44.6 % (37-47); Hemoglobin 13.8 g/dL (12.0-15.0); Lymphocyte # 1.55 X10^3/ul (4.0); Lymphocyte % 34.5 % (19-41); Mean Corp Hgb Conc 30.9 g/dL (32-36); Mean Corpuscular Hgb 29.4 pg (27.0-32.0); Mean Corpuscular Volume 95.1 fL (81-99); Mean Platelet Vol. 12.7 fl (6.2-12.0); Monocyte# 0.34 X10^3/uL; Monocyte% 7.6 % (0-10); NRBC Flagged by Analyzer 0 % (0-5); Neutrophil # 2.51 X10^3/uL (2.7-7.7); Neutrophil % 55.9 % (47-70); Platelet Count 156 K/mm3 (150-450); RBC Distribution Width CV 12.8 % (11.6-14.6); RBC Distribution Width SD 44.7 fl (35.1-43.9); Red Blood Count 4.69 M/mm3 (4.2-5.4); White Blood Count 4.5 K/mm3 (4.4-11.0)
[2019-01-03 18:13] LABS: Vitamin D,25 Hydroxy 17.3 ng/mL (29.95-100.01)
[2019-01-03 18:18] LABS: AST(SGOT) 22 U/L (15-37); Alanine Aminotransfer ALT/SGPT 24 U/L (13-56); Albumin, Serum 3.5 g/dL (3.2-5.0); Alkaline Phosphatase 108 U/L (45-117); Anion Gap 5 (5-15); BUN 11 mg/dL (7-18); BUN/Creat Ratio 10.4 RATIO (10-20); Calcium,Total 8.9 mg/dL (8.5-10.1); Chloride 109 mmol/L (98-107); Creatinine, Serum 1.06 mg/dL (0.55-1.02); EST Glomerular Filtration Rate 54 mL/min (>60); Est Glom Filt Rate - Afr Amer 65 mL/min (>60); Globulin 3.6 g/dL (2.2-4.2); Glucose 88 mg/dL (74-106); Potassium 3.7 mmol/L (3.5-5.1); Protein, Total 7.1 g/dL (6.4-8.2); Sodium Level 144 mmol/L (136-145); Uric Acid 3.8 mg/dL (2.6-6.0)
== END | disposition home or self-care (01) ==
PROVIDERS: Family Provider Family Medicine Geriatric Medicine; PCP Family Medicine Geriatric Medicine; Visit Provider Family Medicine Geriatric Medicine
DX: E55.9 Vitamin D deficiency, unspecified (principal); M10.9 Gout, unspecified; E78.49 Other hyperlipidemia
CPT/HCPCS: 36415; 80053; 82306; 84443; 84550; 85025

== ENCOUNTER 2020-09-11 13:10 | Emergency (ER) | payer MEDICARE, SELFPAY ==
[2020-09-11 13:14] VITALS: BP 217/105; PULSE 72; RESP 22; TEMP 36.8; O2SAT 100; BMI 19.3
--- NOTE | 2020-09-11 13:48 | EKG12_ITS ---
Test Reason : CHEST PAIN Blood Pressure : / mmHG Vent. Rate : 064 BPM Atrial Rate : 064 BPM P-R Int : 138 ms QRS Dur : 086 ms QT Int : 438 ms P-R-T Axes : 070 -04 063 degrees QTc Int : 451 ms Normal sinus rhythm Normal ECG Confirmed by WANDY MACHADO, GISSELL ([id number]), editor farm journal SHERRI GALLO ([id number]) on 09/15/2020 11:02:13 AM Referred By: RAINER Confirmed By:GISSELL SABA MD
--- NOTE | 2020-09-11 13:54 | EX.ED.DYSGE1 ---
HPI History of Present Illness Chief Complaint: Dizziness Narrative Narrative: Patient is a 75-year-old female present with dizziness and weight loss. EMS was called today because patient was feeling dizzy. She states she was feeling lightheaded like she is going to pass out. This happened about 2 hours prior to arrival. Patient states she felt like she could not stand up. Patient notes she woke up around 10 AM. She did feel if she was going to pass out. Her symptoms seem worse with movement and head movement. She notes is been going on for couple months but is been worse over the past 3 weeks. She notes she normally has a vision changes which consist of blurry vision. She denies any current headache. She denies any chest pain, shortness of breath or cough. She notes she does sometimes will short of breath and get dyspnea on exertion. Denies any swelling of her legs. She has been having least 20 pound weight loss over the last month. Daughter states that she vomits after every meal. She not take any medications and is not seen a doctor in a couple years because she does not like to see doctors. Patient denies any change in her bowel habits. She denies any black or bloody stools. [facility] Medical History (Updated 09/11/20 @ 18:[address] Katarina Jefferson, DO) Anxiety Arthritis Depression GERD (gastroesophageal reflux disease) Headaches, cluster High cholesterol Hypertension Home Medications hydrochlorothiazide 25 mg PO DAILY #14 tab 09/11/20 [Rx Last Taken Unknown] ondansetron 4 mg PO Q8H PRN #14 tab 09/11/20 [Rx Last Taken Unknown] Allergy/AdvReac Type Severity Reaction Status Date / Time Iodinated Contrast Media Allergy Unknown Unknown Verified 09/11/20 13:19 [Iodinated Contrast Media - IV Dye] Penicillins Allergy Swelling Verified 09/11/20 13:19 Surgical History H/O: hysterectomy History of cholecystectomy History of tonsillectomy Social History (Updated 04/16/18 @ 15:[address] Rasheeda Degroot, MS) Smoking Status: Never smoker alcohol intake: never substance use type: does not use what type of physical activity do you participate in: none ROS ROS ED Constitutional Constitutional ED: Reports weight loss; Denies chills, fever(s) or malaise Eyes Eyes: Reports blurry vision; Denies change in vision, diplopia or loss of vision ENT ENT ED: Denies ear pain, rhinorrhea or sore throat Cardiovascular Cardiovascular: Denies chest pain or dizziness Respiratory/Chest Respiratory/Chest: Reports dyspnea on exertion; Denies cough, dyspnea or sputum Gastrointestinal Gastrointestinal: Reports nausea and vomiting; Denies abdominal pain Genitourinary Genitourinary ED: Denies dysuria or hematuria Musculoskeletal Musculoskeletal: Denies arthralgias or myalgias Integumentary Denies rash or wounds Neurologic Neurologic: Reports weakness; Denies focal weakness or headache(s) Psychiatric Psychiatric: Denies anxiety, behavioral changes or depression EXAM Physical Exam Const Vital Signs: 09/11/20 13:14 09/11/20 15:10 09/11/20 17:00 Temperature 98.2 F Temperature Source Oral Pulse Rate 72 68 82 Pulse Rate [Standing] Respiratory Rate 22 H 19 H 20 H Respiratory Effort Normal Non-Labored Blood Pressure 217/105 H 195/91 H 211/96 H Blood Pressure [Standing] Blood Pressure Mean 142 125 134 Blood Pressure Mean [Standing] Pulse Ox 100 100 100 Oxygen Delivery Method Room Air Room Air Room Air 09/11/20 17:09 09/11/20 18:11 Temperature Temperature Source Pulse Rate 74 Pulse Rate [Standing] 84 Respiratory Rate 19 H Respiratory Effort Blood Pressure 198/112 H Blood Pressure [Standing] 211/96 H Blood Pressure Mean Blood Pressure Mean [Standing] 134 Pulse Ox 99 Oxygen Delivery Method Positive well nourished, well developed and no apparent distress General Appearance ED: well developed HEENT Reports normocephalic, TM's clear and moist mucous membranes atraumatic Nose: no nasal discharge General Ear: hearing grossly impaired External Ear: external ears normal Tympanic Membrane ED: Yes TM's clear Mouth ED: Yes moist mucous membranes abnormal Mouth: moist mucous membranes abnormal Eyes PERRL and EOMs intact bilaterally Neck full ROM, supple, no meningeal signs and no JVD General: Negative for tenderness Chest Wall inspection of chest normal Resp normal respiratory effort, normal air movement and clear to auscultation bilaterally Cardio regular rate, regular rhythm and no murmurs GI normal to inspection, nondistended, normoactive bowel sounds and no masses Extremity normal to inspection and full ROM General Extremety ED: Negative for edema General Extremity: Negative for edema Neuro oriented x3 Neuro Narrative: No focal neurologic deficits. Patient does seem forgetful at times. No nystagmus. Normal [id number]. No truncal ataxia. Cannot reproduce dizziness with head movement. Sensorium / Orientation: alert Psych mental status grossly normal and thought process normal Mood & Affect: anxious; Negative for depressed Skin no rashes or lesions noted and no wounds MDM MDM MDM Narrative Medical decision making narrative: Patient is evaluated for weakness and dizziness. Initially patient me to see like this is been going on for 2 hours but she is actually been having the symptoms for weeks if not months. Patient is a history of medication noncompliance. She declines nausea medicine in the ER afterwards ordered. She does complain of a headache so she is given Tylenol. She is given hydrochlorothiazide for her hypertension as it does not improve while in the ER. I do not think she is having a stroke. This does not seem to be a hypertensive emergency. Patient been off her blood pressure medication for years. Work-up is largely negative. Since patient has severe reaction to contrast IV contrast cannot be used. Patient is refusing premedication with Benadryl and steroids. CT of the abdomen is limited but does not show any acute process. No signs of obstruction. Given patient difficulty swallowing and frequent vomiting is heavily encouraged that she follow-up with surgery as she will likely need an EGD. I did discuss the case with her old primary care doctor, Dr. Swanson, who states he be happy to see her in the office next week. Patient be given a short course of Zofran as well as hydrochlorothiazide on discharge. She is not orthostatic and no longer seems to be dizzy. I do not suspect a posterior circulation stroke. Patient is comfortable discharge home. She is not have any significant laboratory normalities insistent with malnutrition or dehydration. Patient is counseled on signs and symptoms requiring return to the emergency room. Patient verbalizes agreement and understand this plan. Patient discharged home in stable and improved condition. Lab Data Labs: Laboratory Results - last 24 hr 09/11/20 09/11/20 09/11/20 13:55 14:25 14:25 WBC 5.6 RBC 5.04 Hgb 15.0 Hct 47.3 H MCV 93.8 MCH 29.8 MCHC 31.7 L RDW Std Deviation 41.4 RDW Coeff of Trini 12.0 Plt Count 161 MPV 12.1 H Immature Gran % (Auto) 0.200 Neut % (Auto) 60.8 Lymph % (Auto) 30.2 Geary % (Auto) 7.2 Eos % (Auto) 0.9 Baso % (Auto) 0.7 Absolute Neuts (auto) 3.4 Absolute Lymphs (auto) 1.68 Nucleated RBC % 0 PT 12.4 INR 1.0 Sodium Potassium Chloride Carbon Dioxide Anion Gap BUN Creatinine Estim Creat Clear Calc Est GFR (MDRD) Af Amer Est GFR (MDRD) Non-Af BUN/Creatinine Ratio Glucose Lactic Acid Calcium Total Bilirubin Direct Bilirubin AST ALT Alkaline Phosphatase Troponin I B-Natriuretic Peptide Total Protein Albumin Globulin Lipase Urine Color Straw Urine Clarity Clear Urine pH 8.0 Ur Specific Boss 1.015 Urine Protein Negative Urine Glucose (UA) Normal Urine Ketones Negative Urine Occult Blood 10 H Urine Nitrite Negative Urine Bilirubin Negative Urine Urobilinogen Normal Ur Leukocyte Esterase 25 H Urine RBC 0 SEEN Urine WBC 0 SEEN Ur Squamous Epith Cells 0-5 SEEN Urine Bacteria RARE Urine Mucus 0 SEEN 09/11/20 09/11/20 09/11/20 14:25 14:25 14:25 WBC RBC Hgb Hct MCV MCH MCHC RDW Std Deviation RDW Coeff of Trini Plt Count MPV Immature Gran % (Auto) Neut % (Auto) Lymph % (Auto) Geary % (Auto) Eos % (Auto) Baso % (Auto) Absolute Neuts (auto) Absolute Lymphs (auto) Nucleated RBC % PT INR Sodium 142 Potassium 3.6 Chloride 107 Carbon Dioxide 32.0 Anion Gap 3 L BUN 14 Creatinine 1.02 Estim Creat Clear Calc 37.85 Est GFR (MDRD) Af Amer 68 Est GFR (MDRD) Non-Af 56 L BUN/Creatinine Ratio 13.7 Glucose 88 Lactic Acid 1.5 Calcium 9.6 Total Bilirubin 0.60 Direct Bilirubin 0.19 AST 56 H ALT 40 Alkaline Phosphatase 114 Troponin I < 0.015 B-Natriuretic Peptide 70.4 Total Protein 7.8 Albumin 4.1 Globulin 3.7 Lipase 122 Urine Color Urine Clarity Urine pH Ur Specific Boss Urine Protein Urine Glucose (UA) Urine Ketones Urine Occult Blood Urine Nitrite Urine Bilirubin Urine Urobilinogen Ur Leukocyte Esterase Urine RBC Urine WBC Ur Squamous Epith Cells Urine Bacteria Urine Mucus Radiography Chest X-Ray - ED: 1 View, Read by ED Physician, Read by Radiologist and No Acute Disease Diagnostic Testing: Radiology Impression Chest X-Ray 04/30/21 15:08 IMPRESSION: Hyperinflation. The lungs are clear. Electronically Signed: Hermilo Morrison MD at 15:23 EDT , Service support , Brain CT 09/11/20 15:10 IMPRESSION: Chronic involutional changes of the brain. Electronically Signed: Hermilo Morrison MD at 15:23 EDT , Service support , Abdomen/Pelvis CT 09/11/20 15:40 IMPRESSION: There is no definite acute abnormality seen. However evaluation of the GI tract is very limited without oral contrast. Enteritis and colitis cannot be excluded. Electronically Signed: Bhavik Cavazos MD at 16:43 EDT , Service support , Rhythm Strip Rhythm Strip: Sinus Rhythm Rate: 64 Ectopy: None EKG Initial EKG: Attestation: I personally reviewed and interpreted this EKG as follows: Interpretation: Sinus Rhythm Comments: Normal sinus rhythm at a rate of 64 Left axis deviation Normal intervals Normal ST segments Treatment and Re-Evaluation Comments:: Patient ordered IV Zofran but declines. Discharge Plan Triage Chief Complaint: Dizziness ED Provider: Katarina Jefferson Dx/Rx/DC Orders Clinical Impression: Generalized weakness, Vomiting, Hypertension Instructions: ED Dizziness, Uncertain Cause, ED Hypertension, Established Prescriptions: New hydrochlorothiazide 25 mg tablet 25 mg PO DAILY Qty: 14 RF: 0 ondansetron 4 mg tablet,disintegrating 4 mg PO Q8H PRN (Reason: nausea and vomiting) Qty: 14 RF: 0 Primary Care Provider: Eliu Swanson Chi Referrals: Virginie Alex MD [STAFF PHYSICIAN] - Eliu Swanson Chi, MD [Primary Care Provider] - Activity Restrictions/Additional Instructions: Please follow-up with your primary care doctor for further management of your symptoms as well as your blood pressure. You have been started on a blood pressure medication today. You have been referred to a surgeon, Dr. Alex, for further evaluation of your stomach issues and vomiting. I think you probably need a scope to look inside your stomach to see what is causing your symptoms. Disposition Disposition: Home, self care Discharge Date/Time: 09/11/20 18:12
[2020-09-11 14:03] LABS: Color, Urine Straw (Yellow); Glucose, Dipstick Normal (Normal); Ketone-Dipstick Negative (Negative); Leukocyte Esterase-Dipstick 25 /ul (Negative); Mucous, Urine 0 SEEN /hpf (<or=2+); Nitrite-Dipstick Negative (Negative); Occult Blood-Urine 10 /ul (Negative); Protein-Dipstick Negative (Negative); Red Blood Cells-Urine 0 SEEN /hpf (0-5); Specific Gravity, Urine 1.015 (1.002-1.030); Urine Bilirubin Dipstick Negative (Negative); Urine Clarity Clear (Clear); Urine Urobilinogen Normal (Normal); White Blood Cells 0 SEEN /hpf (0-5)
[2020-09-11 14:21] LABS: Bacteria RARE /hpf (None Seen); Squamous Epithelial Cells - UA 0-5 SEEN /hpf (5-10)
[2020-09-11 14:39] LABS: Absolute Lymphocyte Count 1.68 X10^3/uL (0.83-4.51); Absolute Neutrophil Count 3.4 X10^3/uL (2.0-7.7); Basophil# 0.04 X10^3/uL; Basophil% 0.7 % (0-1); Eosinophil# 0.05 X10^3/uL; Eosinophils% 0.9 % (0-5); Hematocrit 47.3 % (37-47); Lymphocyte # 1.68 X10^3/ul (0.83-4.51); Lymphocyte % 30.2 % (19-41); Mean Corp Hgb Conc 31.7 g/dL (32-36); Mean Corpuscular Hgb 29.8 pg (27.0-32.0); Mean Corpuscular Volume 93.8 fL (81-99); Mean Platelet Vol. 12.1 fl (6.2-12.0); Monocyte% 7.2 % (0-10); NRBC Flagged by Analyzer 0 % (0-5); Neutrophil # 3.38 X10^3/uL (2.7-7.7); Neutrophil % 60.8 % (47-70); Platelet Count 161 K/mm3 (150-450); RBC Distribution Width SD 41.4 fl (35.1-43.9); Red Blood Count 5.04 M/mm3 (4.2-5.4); White Blood Count 5.6 K/mm3 (4.4-11.0)
[2020-09-11 14:52] LABS: Prothrombin Time (Protime)PT. 12.4 SECONDS (11.7-14.9)
[2020-09-11 14:54] LABS: BNP,B-Type NATRIURETIC PEPTIDE 70.4 pg/mL (0-100)
[2020-09-11 14:58] LABS: AST(SGOT) 56 U/L (15-37); Alanine Aminotransfer ALT/SGPT 40 U/L (13-56); Albumin, Serum 4.1 g/dL (3.2-5.0); Alkaline Phosphatase 114 U/L (45-117); Anion Gap 3 (5-15); BUN 14 mg/dL (7-18); BUN/Creat Ratio 13.7 RATIO (10-20); Bilirubin, Direct 0.19 mg/dL (0.00-0.30); Calcium,Total 9.6 mg/dL (8.5-10.1); Chloride 107 mmol/L (98-107); Creatinine, Serum 1.02 mg/dL (0.55-1.02); EST Glomerular Filtration Rate 56 mL/min (>60); Est Glom Filt Rate - Afr Amer 68 mL/min (>60); Estimated Creatinine Clearance 37.85 ml/min; Globulin 3.7 g/dL (2.2-4.2); Glucose 88 mg/dL (74-106); Lipase 122 U/L (73-393); Potassium 3.6 mmol/L (3.5-5.1); Protein, Total 7.8 g/dL (6.4-8.2); Sodium Level 142 mmol/L (136-145)
[2020-09-11 15:02] LABS: Lactic Acid 1.5 mmol/L (0.4-1.9)
--- NOTE | 2020-09-11 15:08 | RAD_ITS ---
STUDY: X-RAY CHEST REASON FOR EXAM: Female, 75 years old. Sob TECHNIQUE: Single AP portable view of the chest. COMPARISON: Comparison is made with prior study dated 03/14/2017. FINDINGS: EKG electrodes are seen. Hyperinflation. The lungs are clear. There is no demonstrated pleural abnormality. Normal size heart. Normal mediastinum and han. Normal visualized pulmonary arteries. There is atherosclerotic calcification of the aortic arch with tortuosity. Normal visualized thoracic spine. Normal visualized ribs, clavicles, and shoulders. There is no demonstrated abnormality of the visualized soft tissue structures of the upper abdomen. RAD/Chest 1 View (Portable) IMPRESSION: Hyperinflation. The lungs are clear. Electronically Signed: Hermilo Morrison MD at 15:23 EDT , Service support ,
[2020-09-11 15:10] VITALS: BP 195/91; PULSE 68; RESP 19; O2SAT 100
--- NOTE | 2020-09-11 15:10 | CT_ITS ---
STUDY: CT BRAIN WITHOUT CONTRAST REASON FOR EXAM: Female, 75 years old. Weakness, unsteady RADIATION DOSAGE (If Supplied By Facility): CTDIvol = ( 38.43 ) mGy, DLP = ( 712.69 ) mGycm TECHNIQUE: Transaxial CT imaging of the brain was performed without administration of intravenous contrast material. Individualized dose optimization techniques were used for this CT. COMPARISON: Comparison is made with prior study dated 12/17/2018. FINDINGS: Normal soft tissue structures. Normal calvarium. There is mild cerebral atrophy with widening of the extra-axial spaces and ventricular dilatation. There are areas of decreased attenuation within the white matter tracts of the supratentorial brain, consistent with microvascular disease changes. There are small punctate calcifications of the basal ganglia which are seen in the aging brain as a normal variant. Normal brainstem. Normal cerebellum. There is no intracranial hemorrhage. There are no findings of an acute ischemic infarction. Normal visualized paranasal sinuses. CT/Brain/Head without Contrast IMPRESSION: Chronic involutional changes of the brain. Electronically Signed: Hermilo Morrison MD at 15:23 EDT , Service support ,
--- NOTE | 2020-09-11 15:12 | ED.RN ---
pt declines zofran at this time
--- NOTE | 2020-09-11 15:40 | CT_ITS ---
STUDY: CT ABDOMEN AND PELVIS WITHOUT CONTRAST REASON FOR EXAM: Female, 75 years old. Abdominal pain, weight loss RADIATION DOSAGE (If Supplied By Facility): CTDIvol = ( 5.16 ) mGy, DLP = ( 202.65 ) mGycm TECHNIQUE: Transaxial images were obtained from the dome of the diaphragm to the symphysis pubis without oral contrast, and without intravenous contrast. Sagittal and coronal images were reconstructed. Individualized dose optimization techniques were used for this CT. COMPARISON: None. FINDINGS: The visualized lung bases are unremarkable. The visualized portions of the heart are within normal limits. Normal liver. There are surgical clips in the gallbladder fossa consistent with a prior cholecystectomy. Normal spleen. Normal pancreas. Normal bilateral adrenal glands. Normal right kidney. Normal left kidney. No definite renal or ureteral stones are seen. There is no hydronephrosis on either side. Evaluation of the GI tract is limited by absence of oral contrast. Cannot exclude stomach wall thickening. No dilated loops of bowel or evidence for obstruction. Cannot exclude segmental thickening of the richards of the small or large bowel. Cannot exclude enteritis or colitis. Moderate diffuse fecal retention. Diverticulosis without definite diverticulitis. Appendix within normal limits. Normal abdominal aorta. Normal inferior vena cava. Normal retroperitoneum. Normal urinary bladder. Uterus is not seen. Normal abdominal wall. There are diffuse degenerative changes of the visualized lumbar spine. CT/Abdomen/Pelvis without Cont IMPRESSION: There is no definite acute abnormality seen. However evaluation of the GI tract is very limited without oral contrast. Enteritis and colitis cannot be excluded. Electronically Signed: Bhavik Cavazos MD at 16:43 EDT , Service support ,
[2020-09-11] MEDS: Acetaminophen 325 MG Tablet 650 MG PO (16:53)
[2020-09-11 17:00] VITALS: BP 211/96; PULSE 82; RESP 20; O2SAT 100
[2020-09-11 17:09] VITALS: BP 211/96; PULSE 84
[2020-09-11] MEDS: hydroCHLOROthiazide 25 MG Tablet PO (17:23)
[2020-09-11 18:11] VITALS: BP 198/112; PULSE 74; RESP 19; O2SAT 99
== END 2020-09-11 18:12 | disposition home or self-care (01) ==
PROVIDERS: Emergency Provider Emergency Medicine; PCP Family Medicine Geriatric Medicine
DX: R53.1 Weakness (principal); H53.8 Other visual disturbances; R06.09 Other forms of dyspnea; R11.2 Nausea with vomiting, unspecified; R42 Dizziness and giddiness; R51.9 Headache, unspecified; R63.4 Abnormal weight loss; Z91.14 Patient's other noncompliance with medication regimen; I10 Essential (primary) hypertension; K21.9 Gastro-esophageal reflux disease without esophagitis; M19.90 Unspecified osteoarthritis, unspecified site; R06.02 Shortness of breath
CPT/HCPCS: 70450; 71045; 74176; 80048; 80076; 81001; 83605; 83690; 83880; 84484; 85025; 85610; 93005; 96374; 99285; A4216; J2405

== ENCOUNTER → 2020-09-17 15:00 | Outpatient (CLI) | payer MEDICARE, SELFPAY ==
[2020-09-11 13:14] VITALS: BMI 19.3
[2020-09-17 16:42] LABS: Absolute Lymphocyte Count 1.91 X10^3/uL (0.83-4.51); Absolute Neutrophil Count 3.4 X10^3/uL (2.0-7.7); Basophil# 0.05 X10^3/uL; Basophil% 0.8 % (0-1); Eosinophil# 0.05 X10^3/uL; Eosinophils% 0.8 % (0-5); Hematocrit 45.7 % (37-47); Hemoglobin 14.2 g/dL (12.0-15.0); Lymphocyte # 1.91 X10^3/ul (0.83-4.51); Lymphocyte % 32.3 % (19-41); Mean Corp Hgb Conc 31.1 g/dL (32-36); Mean Corpuscular Volume 93.5 fL (81-99); Mean Platelet Vol. 12.3 fl (6.2-12.0); Monocyte# 0.51 X10^3/uL; Monocyte% 8.6 % (0-10); NRBC Flagged by Analyzer 0 % (0-5); Neutrophil # 3.38 X10^3/uL (2.7-7.7); Neutrophil % 57.3 % (47-70); Platelet Count 164 K/mm3 (150-450); RBC Distribution Width SD 41.9 fl (35.1-43.9); Red Blood Count 4.89 M/mm3 (4.2-5.4); White Blood Count 5.9 K/mm3 (4.4-11.0)
[2020-09-17 17:09] LABS: Vitamin D,25 Hydroxy 13.6 ng/mL
[2020-09-17 17:14] LABS: ALB/GLOB Ratio 1.2 RATIO (0.9-2.4); AST(SGOT) 22 U/L (15-37); Alanine Aminotransfer ALT/SGPT 26 U/L (13-56); Alkaline Phosphatase 104 U/L (45-117); Anion Gap 7 (5-15); BUN 17 mg/dL (7-18); BUN/Creat Ratio 13.9 RATIO (10-20); Calcium,Total 9.3 mg/dL (8.5-10.1); Chloride 101 mmol/L (98-107); Creatinine, Serum 1.22 mg/dL (0.55-1.02); EST Glomerular Filtration Rate 46 mL/min (>60); Est Glom Filt Rate - Afr Amer 55 mL/min (>60); Globulin 3.3 g/dL (2.2-4.2); Glucose 58 mg/dL (74-106); Potassium 4.1 mmol/L (3.5-5.1); Protein, Total 7.3 g/dL (6.4-8.2); Sodium Level 140 mmol/L (136-145); Thyroid Stim Hormone (TSH) 1.06 uIU/mL (0.358-3.74); Uric Acid 4.2 mg/dL (2.6-6.0)
== END ==
PROVIDERS: PCP Family Medicine Geriatric Medicine; Visit Provider Family Medicine Geriatric Medicine
DX: E55.9 Vitamin D deficiency, unspecified (principal); I10 Essential (primary) hypertension; M10.9 Gout, unspecified
CPT/HCPCS: 36415; 80053; 82306; 84443; 84550; 85025

== ENCOUNTER 2023-01-05 09:06 | Outpatient (CLI) | payer MEDICARE, SELFPAY ==
[2023-01-05 17:45] LABS: Absolute Lymphocyte Count 1.93 X10^3/uL (0.83-4.51); Absolute Neutrophil Count 2.6 X10^3/uL (2.0-7.7); Basophil# 0.04 X10^3/uL; Basophil% 0.8 % (0-1); Eosinophil# 0.05 X10^3/uL; Hematocrit 43.5 % (37-47); Hemoglobin 13.9 g/dL (12.0-15.0); Lymphocyte # 1.93 X10^3/ul (0.83-4.51); Lymphocyte % 38.1 % (19-41); Mean Corpuscular Hgb 30.1 pg (27.0-32.0); Mean Corpuscular Volume 94.2 fL (81-99); Mean Platelet Vol. 11.8 fl (6.2-12.0); Monocyte# 0.45 X10^3/uL; Monocyte% 8.9 % (0-10); NRBC Flagged by Analyzer 0 % (0-5); Neutrophil # 2.59 X10^3/uL (2.7-7.7); Platelet Count 164 K/mm3 (150-450); RBC Distribution Width CV 12.4 % (11.6-14.6); RBC Distribution Width SD 42.7 fl (35.1-43.9); Red Blood Count 4.62 M/mm3 (4.2-5.4); White Blood Count 5.1 K/mm3 (4.4-11.0)
--- NOTE | 2023-01-05 17:45 | RAD_ITS ---
STUDY: X-RAY - ABDOMEN/PELVIS REASON FOR EXAM: Female, 77 years old. Pain. TECHNIQUE: AP supine and upright views of the abdomen and pelvis. COMPARISON: Abdomen and pelvic CT dated August 2020. FINDINGS: Normal visualized lung bases. Normal bowel gas pattern with air seen to the rectosigmoid without disproportionate dilatation or free abdominal air. The visualized liver, spleen and kidneys are grossly normal in size and morphology. Cholecystectomy clips. Calcifications in both gluteal regions compatible with injection granulomas. Normal visualized osseous structures. RAD/Abd Inc Decub and/or Erect IMPRESSION: No acute abnormality of the lower chest, abdomen or pelvis. Electronically Signed: Thad Cali MD at 11:37 EDT ,
[2023-01-05 18:13] LABS: Vitamin D,25 Hydroxy 12.2 ng/mL
[2023-01-05 18:32] LABS: ALB/GLOB Ratio 0.9 RATIO (0.9-2.4); AST(SGOT) 24 U/L (15-37); Alanine Aminotransfer ALT/SGPT 17 U/L (13-56); Albumin, Serum 3.5 g/dL (3.2-5.0); Alkaline Phosphatase 104 U/L (45-117); Anion Gap 5 (5-15); BUN 16 mg/dL (7-18); Chloride 109 mmol/L (98-107); Creatinine, Serum 1.07 mg/dL (0.55-1.02); EST Glomerular Filtration Rate 53 mL/min (>60); Est Glom Filt Rate - Afr Amer 64 mL/min (>60); Globulin 3.8 g/dL (2.2-4.2); Glucose 88 mg/dL (74-106); Potassium 3.5 mmol/L (3.5-5.1); Protein, Total 7.3 g/dL (6.4-8.2); Sodium Level 142 mmol/L (136-145); Thyroid Stim Hormone (TSH) 1.16 uIU/mL (0.358-3.74); Uric Acid 3.3 mg/dL (2.6-6.0)
== END 2023-01-05 23:59 | disposition home or self-care (01) ==
PROVIDERS: PCP Family Medicine Geriatric Medicine; Referring Provider Family Medicine Geriatric Medicine; Visit Provider Family Medicine Geriatric Medicine
DX: I10 Essential (primary) hypertension (principal); M10.9 Gout, unspecified; R10.9 Unspecified abdominal pain; E78.5 Hyperlipidemia, unspecified; E55.9 Vitamin D deficiency, unspecified
CPT/HCPCS: 36415; 74019; 80053; 82306; 84443; 84550; 85025

== ENCOUNTER → 2023-05-25 | Outpatient (CLI) | payer MEDICARE, SELFPAY ==
--- OUTSIDE RECORDS SUMMARY | 2023-05-25 15:57 | XMS RPT_ITS | CCD ---
Author Name Unknown Address [address] [place] [address] Organization [facility] Allergies Allergy Classification Reported Allergen(s) Allergy Type Date of Onset Reaction(s) Facility (1 source) alendronate; Translations: [ALENDRONATE SODIUM] Drug Allergy 6 [facility] Repository (1 source) atorvastatin; Translations: [ATORVASTATIN CALCIUM] Drug Allergy 6 [facility] Repository (1 source) cephalexin; Translations: [CEPHALEXIN] Drug Allergy 6 [facility] Repository (1 source) ibandronate; Translations: [IBANDRONATE] Drug Allergy 6 [facility] Repository (1 source) iodine; Translations: [IODINE] Drug Allergy 4 [facility] Repository (1 source) lansoprazole; Translations: [LANSOPRAZOLE] Drug Allergy 6 [facility] Repository (1 source) Latex; Translations: [LATEX] Propensity to adverse reactions to drug (disorder) 6 [facility] Repository (1 source) simvastatin; Translations: [SIMVASTATIN] Drug Allergy 6 [facility] Rep[facility] (1 source) triamcinolone; Translations: [TRIAMCINOLONE ACETONIDE] Drug Allergy 6 [facility] Rep[facility] (1 source) PHENYLEPHRINE- AIFENESIN; Translations: [PHENYLEPHRINE-G UAIFENESIN] Propensity to adverse reactions to drug (disorder) 6 [facility] Repository Results Test Name Value Interpretation Reference Range Facil ity Encounters Encounter Date Encounter Type Care Provider Facility Start: 03-14-2017 End: 03-14-2017 Ambulatory [facility] Summary Purpose Family History No Family History Records FoundNo Family History Records Found Advance Directives No Advanced Directives Records FoundNo Advanced Directives Records Found Additional Source Comments INFORMATION SOURCE (unrecogn ized section and content) DATE CREATED AUTHOR AUTHOR'S JOSÉ MORRISON 04/24/2019 [facility] ([place]) FOR RECORDS PERTAINING TO PATIENTS WHO ARE OR HAVE BEEN ENROLLED IN A CHEMICAL DEPENDENCY/SUBSTANCEABUSE PROGRAM, SOME INFORMATION MAY BE OMITTED. This clinical summary was aggregated from multiple sources. Caution should be exercised in using it in the provision of clinical care. This summary normalizes information from multiple sources, and as a consequence, information in this document may materially change the coding, format and clinical context of patient data. In addition, data may be omitted in some cases. CLINICAL DECISIONS SHOULD BE BASED ON THE PRIMARY CLINICAL RECORDS. [facility]. provides no warranty or guarantee of the accuracy or completeness of information in this document.
== END | disposition home or self-care (01) ==
LOC: POLAB3 15:33
PROVIDERS: PCP Family Medicine Geriatric Medicine; Visit Provider Family Medicine Geriatric Medicine
DX: N39.0 Urinary tract infection, site not specified (principal)
CPT/HCPCS: 87086

== ENCOUNTER → 2024-01-10 | Outpatient (CLI) | payer MEDICARE, SELFPAY ==
[2024-01-10 17:26] LABS: Absolute Lymphocyte Count 2.48 X10^3/uL (0.83-4.51); Absolute Neutrophil Count 4.1 X10^3/uL (2.0-7.7); Basophil# 0.04 X10^3/uL; Basophil% 0.6 % (0-1); Eosinophil# 0.07 X10^3/uL; Hematocrit 40.7 % (37-47); Lymphocyte # 2.48 X10^3/ul (0.83-4.51); Lymphocyte % 34.5 % (19-41); Mean Corp Hgb Conc 31.9 g/dL (32-36); Mean Corpuscular Volume 90.6 fL (81-99); Mean Platelet Vol. 11.7 fl (6.2-12.0); Monocyte# 0.52 X10^3/uL; Monocyte% 7.2 % (0-10); NRBC Flagged by Analyzer 0 % (0-5); Neutrophil # 4.06 X10^3/uL (2.7-7.7); Neutrophil % 56.6 % (47-70); Platelet Count 165 K/mm3 (150-450); RBC Distribution Width CV 12.9 % (11.6-14.6); RBC Distribution Width SD 42.5 fl (35.1-43.9); Red Blood Count 4.49 M/mm3 (4.2-5.4); White Blood Count 7.2 K/mm3 (4.4-11.0)
[2024-01-10 18:57] LABS: ALB/GLOB Ratio 0.9 RATIO (0.9-2.4); AST(SGOT) 16 U/L (15-37); Alanine Aminotransfer ALT/SGPT 14 U/L (13-56); Albumin, Serum 3.4 g/dL (3.2-5.0); Alkaline Phosphatase 100 U/L (45-117); Anion Gap 6 (5-15); BUN 15 mg/dL (7-18); BUN/Creat Ratio 14.6 RATIO (10-20); Calcium,Total 9.4 mg/dL (8.5-10.1); Chloride 109 mmol/L (98-107); Cholesterol 210 mg/dL (200); Creatinine, Serum 1.03 mg/dL (0.55-1.02); EST Glomerular Filtration Rate 55 mL/min (>60); Est Glom Filt Rate - Afr Amer 66 mL/min (>60); Globulin 3.7 g/dL (2.2-4.2); Glucose 91 mg/dL (74-106); High Density Lipoprotein 79 mg/dL; Protein, Total 7.1 g/dL (6.4-8.2); Sodium Level 144 mmol/L (136-145); Triglycerides 70 mg/dL; Very Low Density Lipoprotein 14 mg/dL (5-40)
== END | disposition home or self-care (01) ==
LOC: POLAB3 16:39
PROVIDERS: PCP Family Medicine Geriatric Medicine; Visit Provider Family Medicine Geriatric Medicine
DX: E78.5 Hyperlipidemia, unspecified (principal); I10 Essential (primary) hypertension; M10.9 Gout, unspecified; E55.9 Vitamin D deficiency, unspecified; N39.0 Urinary tract infection, site not specified
CPT/HCPCS: 36415; 80053; 80061; 82306; 84443; 84550; 85025; 87086; 87088; 87186

== ENCOUNTER → 2024-07-22 | Outpatient (CLI) | payer MEDICARE, SELFPAY ==
[2024-07-22 16:16] LABS: Absolute Neutrophil Count 3.1 X10^3/uL (2.0-7.7); Basophil# 0.04 X10^3/uL; Basophil% 0.7 % (0-1); Eosinophil# 0.08 X10^3/uL; Eosinophils% 1.4 % (0-5); Hemoglobin 13.8 g/dL (12.0-15.0); Lymphocyte % 35.5 % (19-41); Mean Corp Hgb Conc 32.9 g/dL (32-36); Mean Corpuscular Hgb 30.2 pg (27.0-32.0); Mean Corpuscular Volume 91.9 fL (81-99); Mean Platelet Vol. 12.2 fl (6.2-12.0); Monocyte# 0.43 X10^3/uL; Monocyte% 7.6 % (0-10); NRBC Flagged by Analyzer 0 % (0-5); Neutrophil # 3.08 X10^3/uL (2.7-7.7); Neutrophil % 54.6 % (47-70); Platelet Count 178 K/mm3 (150-450); RBC Distribution Width CV 12.8 % (11.6-14.6); RBC Distribution Width SD 43.2 fl (35.1-43.9); Red Blood Count 4.57 M/mm3 (4.2-5.4); White Blood Count 5.6 K/mm3 (4.4-11.0)
[2024-07-23 02:23] LABS: Uric Acid 3.2 mg/dL (2.6-6.0); Vitamin D,25 Hydroxy 8.8 ng/mL (30-100)
[2024-07-23 02:25] LABS: ALB/GLOB Ratio 1.5 RATIO (0.9-2.4); AST(SGOT) 25 U/L (<=31); Alanine Aminotransfer ALT/SGPT 11 U/L (<=34); Albumin, Serum 4.2 g/dL (3.4-4.8); Alkaline Phosphatase 95 U/L (35-104); Anion Gap 16 (5-15); BUN 17 mg/dL (4-19); Calcium,Total 9.5 mg/dL (7.6-11.0); Carbon Dioxide 20.9 mmol/L (21.0-32.0); Chloride 109 mmol/L (98-108); Globulin 2.9 g/dL (2.2-4.2); Glucose 67 mg/dL (70-99); High Density Lipoprotein 78 mg/dL; Potassium 3.7 mmol/L (3.3-5.1); Sodium Level 146 mmol/L (133-145); Total Bilirubin 0.72 mg/dL (0.00-1.30); Very Low Density Lipoprotein 12 mg/dL (5-40); cholesterol:hdl ratio screen 2.75
[2024-07-23 03:40] LABS: Creatinine, Serum 1.02 mg/dL (0.70-1.20); EST Glomerular Filtration Rate 56 (>60)
[2024-07-23 03:41] LABS: BUN/Creat Ratio 16.8 RATIO (10-20); Cholesterol 217 mg/dL (<=200); Triglycerides 62 mg/dL
[2024-07-23 03:42] LABS: Low Density Lipoprotein Calc. 127 mg/dL
== END | disposition home or self-care (01) ==
LOC: POLAB3 15:52
PROVIDERS: PCP Family Medicine Geriatric Medicine; Visit Provider Family Medicine Geriatric Medicine
DX: E78.5 Hyperlipidemia, unspecified (principal); I10 Essential (primary) hypertension; M10.9 Gout, unspecified; E55.9 Vitamin D deficiency, unspecified
CPT/HCPCS: 36415; 80053; 80061; 82306; 84443; 84550; 85025

== ENCOUNTER 2025-01-29 09:56 | Emergency (ER) | payer MEDICARE, SELFPAY ==
[2025-01-29 09:59] VITALS: BP 121/72; PULSE 77; RESP 16; TEMP 36.4; O2SAT 92; BMI 15.0
--- NOTE | 2025-01-29 10:14 | EDS_ITS ---
HPI HPI - GI History of Present Illness Chief Complaint: Diarrhea Detail of Chief Complaint: Diarrhea and left leg laceration Informant: patient and family Narrative Narrative: Patient presents to the emergency department with complaint of diarrhea that started this morning. She has not been on antibiotics. She lives with family members and has history of dementia. Patient also had a cut on her left leg but the daughter does not think she fell and possibly may have cut her leg with her nail. Unsure of last tetanus shot. Patient denies any abdominal pain currently. Patient states she had a hard time sleeping last night. She said no fever or chills or sweats. She denies urinary symptoms. [facility] Medical History (Updated 01/29/25 @ 14:[address] Leyla Ingram, DO) Anxiety Depression Hypertension GERD (gastroesophageal reflux disease) High cholesterol Headaches, cluster Arthritis Home Medications ?Medication ?Instructions ?Recorded ?Last Taken ?Type hydrochlorothiazide 25 mg tablet 25 mg PO DAILY #14 ta bs 09/11/20 Unknown Rx ondansetron 4 mg disintegrating 4 mg PO Q8H PRN nausea and 09/11/20 Unknown Rx tablet vomiting #14 tabs sulfamethoxazole 800 1 tab PO BID #14 tabs Unknown Rx mg-trimethoprim 160 mg tablet (Bactrim DS) Allergy/AdvReac Type Severity Reaction Status Date / Time Iodinated Contrast Media Allergy Unknown Unknown Verified 01/29/25 10:35 (Iodinated Contrast Media - IV Dye) Penicillins Allergy Swelling Verified 01/29/25 10:35 Surgical History History of cholecystectomy History of tonsillectomy H/O: hysterectomy Social History (Updated 04/16/18 @ 15:[address] Rasheeda Degroot, INDRA) Smoking Status: Never smoker alcohol intake: never substance use type: does not use what type of physical activity do you participate in: none ROS ROS ED Review of Systems ROS Unobtainable: other Constitutional Constitutional ED: Reports lethargy; Denies chills, fever(s), sweats or weight loss Eyes Eyes: Denies blurry vision, change in vision or diplopia ENT ENT ED: Denies rhinorrhea or sore throat Cardiovascular Cardiovascular: Denies chest pain, orthopnea or racing heartbeat Respiratory/Chest Respiratory/Chest: Denies cough, dyspnea, dyspnea on exertion, orthopnea or sputum Gastrointestinal Gastrointestinal: Reports diarrhea; Denies abdominal pain, nausea or vomiting Genitourinary Genitourinary ED: Denies dysuria, hematuria or urinary frequency Musculoskeletal Musculoskeletal: Denies arthralgias, back pain, myalgias or neck pain Integumentary Reports other Details: Left leg laceration ; Denies abscess, Abrasions or rash Neurologic Neurologic: Denies headache(s) or weakness Psychiatric Psychiatric: Denies anxiety, depression or suicidal thoughts Endocrine Endocrinology: Denies polydipsia, polyphagia or polyuria Hematologic/Lymphatic Hematologic/Lymphatic: Denies easy bleeding, easy bruising or lymphadenopathy Allergic/Immunologic Allergic/Immunologic ED: Denies mouth swelling, tongue swelling or urticaria EXAM Physical Exam Const Vital Signs: 01/29/25 09:59 01/29/25 11:57 01/29/25 13:00 Temperature 97.5 F L Temperature Source Oral Pulse Rate 77 70 77 Respiratory Rate 16 15 Blood Pressure 121/72 H 148/93 H Blood Pressure Mean 88 111 Pulse Ox 92 97 94 Oxygen Delivery Method Room Air Positive well nourished and well developed General Appearance ED: well developed and NAD HEENT Reports TM's clear and moist mucous membranes normocephalic and atraumatic; Negative for trauma or tenderness Tympanic Membrane ED: Yes TM's clear Eyes PERRL and EOMs intact bilaterally General Eye ED: Negative for pale conjunctiva or scleral icterus Neck no lymphadenopathy, supple and no JVD General: Negative for tenderness Chest Wall inspection of chest normal and palpation of chest normal Chest: Negative for tenderness Resp normal respiratory effort and clear to auscultation bilaterally Effort and Inspection: Negative for respiratory distress or pain with movement Auscultation: Negative for rhonchi, wheezes or diminished lung sounds Cardio regular rate, regular rhythm, S1 normal heart sound, S2 normal heart sound and no murmurs Peripheral Pulses: pulses 2+ throughout GI normal to inspection, nondistended, normoactive bowel sounds, soft to palpation, non-tender, non-distended and no masses GI Narrative: Rectal exam-brown stool in the rectal vault no masses palpated. No gross blood. No fissures or hemorrhoids noted. Back/Spine no CVA tenderness and no thoracic nor lumbar tenderness Extremity normal to inspection Extremity Narrative: Left sanford-patient has 1 cm vertical linear laceration over the mid tibia that is superficial. No active bleeding. Neurovascularly intact distally. General Extremety ED: Negative for edema General Extremity: Negative for edema Neuro oriented x3, CN's II-XII intact bilaterally, no sensory deficits noted and gait normal Sensorium / Orientation: awake, alert, oriented to person, oriented to place and oriented to time Motor Exam: strength 5/5 throughout and strength abnormal Psych mental status grossly normal Skin no rashes or lesions noted and no wounds MDM MDM MDM Narrative Medical decision making narrative: Patient presents with diarrhea and a cut on her left leg. Diarrhea started this morning. Otherwise has not been ill. She had some abdominal pain earlier but currently denied any pain. She is a poor historian and has history of dementia. Daughter states that she has constipation from time to time and is supposed to be taking a stool softener. Patient's had no fever. It is unclear how she cut her left leg but they do not think that patient fell in any point. Please see procedure note for suture repair of the small 1 cm laceration to her left anterior sanford. IV line established. CBC with differential obtained showed a white count 7.9 with hemoglobin 13.8 and platelet count of 195. Chemistries unremarkable. Lactate was slightly elevated 2.5. Urinalysis with signs of infection and that she had 500 leukocyte esterase as well as 50-100 WBCs and +1 bacteria. Patient started on Rocephin 1 g IV. I did do a CT scan of the abdomen pelvis initially because she was complaining of some lower abdominal discomfort and this did not show any acute disease process. She had some diverticulosis noted. Patient also had x-rays of the left hip initially as she was complaining of some pain to that area and there was no evidence of fracture. She was able to stand and ambulate with assistance. Discussed all results with patient and family members. Will discharge to home with prescription for Bactrim. Patient advised to follow-up with primary care physician 3 to 5 days. Etiology of diarrhea unclear although this could be viral versus related to constipation however I did not on digital exam note any impaction. Lab Data Attestation: I reviewed the patient's lab results. Labs: Laboratory Results - last 24 hr 01/29/25 01/29/25 10:27 13:16 WBC 7.9 RBC 4.65 Hgb 13.8 Hct 43.1 MCV 92.7 MCH 29.7 MCHC 32.0 RDW Std Deviation 43.8 RDW Coeff of Trini 13.0 Plt Count 195 MPV 12.5 H Immature Gran % (Auto) 0.600 Neut % (Auto) 70.8 H Lymph % (Auto) 23.3 [place] % (Auto) 4.4 Eos % (Auto) 0.5 Baso % (Auto) 0.4 Absolute Neuts (auto) 5.6 Absolute Lymphs (auto) 1.85 Nucleated RBC % 0 Sodium 144 Potassium 3.7 Chloride 107 Carbon Dioxide 24.0 Anion Gap 13 BUN 15 Creatinine 1.04 Estim Creat Clear Calc 26.97 L Est GFR (MDRD) Non-Af 54 L BUN/Creatinine Ratio 14.8 Glucose 136 H Lactic Acid 2.5 H* Calcium 9.7 Urine Color Yellow Urine Clarity Cloudy Urine pH 6.0 Ur Specific [place] 1.020 Urine Protein 30 H Urine Glucose (UA) Normal Urine Ketones 5 H Urine Occult Blood 25 H Urine Nitrite Negative Urine Bilirubin Negative Urine Urobilinogen Normal Ur Leukocyte Esterase 500 H Urine RBC 0 SEEN Urine WBC 50-100 SEEN Ur Squamous Epith Cells 0-5 SEEN Ur Renal Epithelial Cell 0-5 SEEN Urine Bacteria 1+ Urine Mucus 0 SEEN Radiography Diagnostic Testing: Clinical Impression(s) from Imaging Studies Hip/Pelvis X-Ray 01/29/25 10:33 IMPRESSION: Degenerative changes. No fracture is seen. Reading Location: [facility] Abdomen/Pelvis CT 01/29/25 11:32 IMPRESSION: Scattered diverticula throughout the colon more prominent in the sigmoid colon. No acute abnormality is seen. Stable examination. Reading Location: [facility] Procedures Lacerations left sanford laceration: Length: 0.39 in Depth: Sub Q Shape: Linear Prep: Sterile Conditions and Shure-Clens Laceration repair: Irrigated, Lidocaine and Local Irrigated (ml): 50 Number of Sutures/Dewart: 1 Suture Information: Ethilon and 4-0 Discharge Plan Triage Chief Complaint: Diarrhea ED Provider: Leyla Ingram Dx/Rx/DC Orders Clinical Impression: Diarrhea, Acute UTI, Laceration of left lower leg Instructions: ED Diarrhea, Unknown Cause, ED Laceration Extremity, ED Cystitis Female Adult Prescriptions: New sulfamethoxazole-trimethoprim [Bactrim DS] 800-160 mg tablet 1 tab PO BID Qty: 14 0RF No Action hydrochlorothiazide 25 mg tablet 25 mg PO DAILY Qty: 14 0RF ondansetron 4 mg tablet,disintegrating 4 mg PO Q8H PRN (Reason: nausea and vomiting) Qty: 14 0RF Primary Care Provider: Eliu Swanson Chi Referrals: Eliu Swanson Chi, MD [Primary Care Provider, Geriatrics] - 3-5 Days Print Language: Gabonese Disposition Disposition: Home, Self Care
--- NOTE | 2025-01-29 10:33 | RAD_ITS ---
PROCEDURE: HIP, UNI W/ PELVIS 2-3 VIEWS 01/29/2025 REASON FOR EXAM: PAIN Left hip pain following a fall. TECHNIQUE: Procedure Code: RAD Modality: DX Procedure: HIP, UNI W/ PELVIS 2-3 VIEWS Laterality: Left hip COMPARISON: None FINDINGS: Bones: No fracture is seen. Joints: Degenerative changes of the sacroiliac joints and both hip joints. Soft tissues: Soft tissue calcification. Fecal material seen in the rectosigmoid colon. Other: RAD/HIP, UNI W/ Pelvis 2-3 Views IMPRESSION: Degenerative changes. No fracture is seen. Reading Location: [facility]
[2025-01-29] MEDS: Lidocaine 1% (20 ml mdv) 20 ML Vial 4 ML INFILT (10:34)
[2025-01-29] MEDS: 0.9% Normal Saline (1000mL) 1,000 ML 150 ML IV (10:38)
[2025-01-29 10:57] LABS: Anion Gap 13 (5-15); BUN 15 mg/dL (4-19); BUN/Creat Ratio 14.8 RATIO (10-20); Calcium,Total 9.7 mg/dL (7.6-11.0); Carbon Dioxide 24.0 mmol/L (21.0-32.0); Chloride 107 mmol/L (98-108); Estimated Creatinine Clearance 26.97 ml/min (50-250); Glucose 136 mg/dL (70-99); Potassium 3.7 mmol/L (3.3-5.1)
[2025-01-29 10:59] LABS: Hematocrit 43.1 % (37-47); Hemoglobin 13.8 g/dL (12.0-15.0); Immature Granulocytes Count 0.050 X10^3/uL (0.0-0.0); Mean Corp Hgb Conc 32.0 g/dL (32-36); Mean Corpuscular Volume 92.7 fL (81-99); Mean Platelet Vol. 12.5 fl (6.2-12.0); NRBC Flagged by Analyzer 0 % (0-5); Platelet Count 195 K/mm3 (150-450); RBC Distribution Width CV 13.0 % (11.6-14.6); RBC Distribution Width SD 43.8 fl (35.1-43.9); Red Blood Count 4.65 M/mm3 (4.2-5.4); White Blood Count 7.9 K/mm3 (4.4-11.0)
--- NOTE | 2025-01-29 11:32 | CT_ITS ---
PROCEDURE: ABDOMEN/PELVIS WITHOUT CONT 01/29/2025 REASON FOR EXAM: ABDOMINAL PAIN Prior hysterectomy and cholecystectomy. TECHNIQUE: Procedure Code: CTABDPEL Modality: CT Procedure: ABDOMEN/PELVIS WITHOUT CONT Noncontrast technique limits evaluation of the abdominal and pelvic viscera. Coronal and Sagittal reconstruction series were provided. One or more dose reduction techniques were used (e.g., Automated exposure control, adjustment of the mA and/or kV according to patient size, use of iterative reconstruction technique). RADIATION DOSE SUMMARY: CTDlvol: 6.04 mGy DLP: 250.64 mGycm COMPARISON: Prior study dated September 11, 2020. FINDINGS: Lung bases: Minimal increased linear markings at the left lung base suggestive of scarring. Liver: Normal size. No obvious mass. Gallbladder: Surgically absent. Spleen: Scattered splenic granulomas. Pancreas: Diffuse fatty atrophy. Adrenals: Unremarkable Kidneys: No urolithiasis. No hydronephrosis. Bladder: Unremarkable Reproductive Organs: Prior hysterectomy. Adnexal regions are unremarkable. Bowel: Sigmoid diverticulosis. Scattered diverticula are also seen in the right hemicolon. Appendix: The appendix is not identified. There is no inflammatory process identified in the right lower quadrant to suggest appendicitis. Lymph nodes: Unremarkable. Vasculature: Mild diffuse atherosclerotic calcifications are noted. Peritoneum / Retroperitoneum: No ascites Bones: Loss of the normal lumbar lordosis. Minimal anterior listhesis of L4 on L5. CT/Abdomen/Pelvis without Cont IMPRESSION: Scattered diverticula throughout the colon more prominent in the sigmoid colon. No acute abnormality is seen. Stable examination. Reading Location: [place] [id number]
[2025-01-29 11:57] VITALS: PULSE 70; RESP 15; O2SAT 97
[2025-01-29 13:00] VITALS: BP 148/93; PULSE 77; O2SAT 94
[2025-01-29 13:20] LABS: Mucous, Urine 0 SEEN /hpf (<or=2+); Red Blood Cells-Urine 0 SEEN /hpf (0-5)
[2025-01-29 13:21] LABS: Color, Urine Yellow (Yellow); Glucose, Dipstick Normal (Normal); Ketone-Dipstick 5 mg/dl (Negative); Leukocyte Esterase-Dipstick 500 /ul (Negative); Nitrite-Dipstick Negative (Negative); Occult Blood-Urine 25 /ul (Negative); Protein-Dipstick 30 mg/dl (Negative); Specific Gravity, Urine 1.020 (1.002-1.030); Urine Bilirubin Dipstick Negative (Negative)
[2025-01-29 13:31] LABS: Squamous Epithelial Cells - UA 0-5 SEEN /hpf (5-10)
[2025-01-29 14:34] LABS: Reflex Lactate? Y
[2025-01-29 14:49] VITALS: BP 168/99; PULSE 78; RESP 18; TEMP 36.2; O2SAT 98
== END 2025-01-29 14:51 | disposition home or self-care (01) ==
PROVIDERS: Emergency Provider Emergency Medicine; PCP Family Medicine Geriatric Medicine; Visit Provider Emergency Medicine
DX: R19.7 Diarrhea, unspecified (principal); F03.90 Unspecified dementia, unspecified severity, without behavioral disturbance, psychotic disturbance, mood disturbance, and anxiety; N39.0 Urinary tract infection, site not specified; E78.00 Pure hypercholesterolemia, unspecified; S81.812A Laceration without foreign body, left lower leg, initial encounter; M25.552 Pain in left hip; Z90.710 Acquired absence of both cervix and uterus; I10 Essential (primary) hypertension; Z79.899 Other long term (current) drug therapy; Z90.49 Acquired absence of other specified parts of digestive tract
CPT/HCPCS: 12001; 73502; 74176; 80048; 81001; 82274; 83605; 85025; 87077; 87086; 87088; 87186; 90715; 96361; 96365; 99285; P9612; A4216

== ENCOUNTER 2025-03-05 07:23 | Emergency (ER) | payer MEDICARE, SELFPAY ==
[2025-03-05 07:27] VITALS: BP 104/61; PULSE 80; RESP 14; TEMP 36.6; O2SAT 97; BMI 13.2
--- NOTE | 2025-03-05 07:34 | RAD_ITS ---
PROCEDURE: CHEST PA AND LATERAL 03/05/2025 REASON FOR EXAM: ADVENTITIAL BREATH SOUNDS TECHNIQUE: Procedure Code: RADCXR Modality: DX Procedure: CHEST PA AND LATERAL COMPARISON: None FINDINGS: Hardware: EKG electrodes are seen. Heart: The heart size is normal. Mediastinum: The mediastinal contour is unremarkable. Lungs: Hyperinflation. Lungs are clear. Bones: Dextroconvex scoliosis. RAD/Chest PA and Lateral IMPRESSION: Hyperinflation. The lungs are clear. Reading Location: [place] [id number]
--- NOTE | 2025-03-05 07:35 | EX.ED.DYSGE1 ---
HPI History of Present Illness Chief Complaint: Alt LOC Detail of Chief Complaint: Altered mental status with episodes of staring Informant: family (Daughter is the primary informant) Limited: dementia Onset/Context/Timing Onset: Today Context: Sudden Onset Timing: Intermittent (Approximately 20 minutes) Quality: Unresponsiveness question staring no abnormal motor activity Location: Presents from home Current Severity: Mild Maximum Severity: Moderate Worsened by: Unknown Relieved by: Nothing Associated Symptoms Associated Symptoms: None Narrative Narrative: Patient is an 79-year-old woman. She has history of dementia. She was recently seen in the emergency room. She was seen on January [address] Allred. At that time she was diagnosed with diarrhea of unknown cause, laceration lower extremity and cystitis. She was placed on Bactrim. Patient presently has no complaints. She does answer questions. She does not appear well. She has no complaint of headache, visual, ocular auditory symptoms. She denies respiratory symptoms. She denies GI symptoms. She denies urologic symptoms. Prior similar symptoms: Yes Recent Illness/Hospitalization: Yes (Seen January 29. Prior ER visit September [address] Jefferson's no) [facility] Medical History Anxiety Depression Hypertension GERD (gastroesophageal reflux disease) High cholesterol Headaches, cluster Arthritis Home Medications ?Medication ?Instructions ?Recorded ?Last Taken ?Type hydrochlorothiazide 25 mg tablet 25 mg PO DAILY #14 tabs 09/11/20 Unknown Rx ondansetron 4 mg disintegrating 4 mg PO Q8H PRN nausea and 09/11/20 Unknown Rx tablet vomiting #14 tabs sulfamethoxazole 800 1 tab PO BID #14 tabs 01/29/25 Unknown Rx mg-trimethoprim 160 mg tablet (Bactrim DS) levofloxacin 500 mg tablet 500 mg PO DAILY #6 tabs 03/05/25 Unknown Rx Allergy/AdvReac Type Severity Reaction Status Date / Time Iodinated Contrast Media Allergy Unknown Unknown Verified 01/29/25 10:35 (Iodinated Contrast Media - IV Dye) Penicillins Allergy Swelling Verified 01/29/25 10:35 Surgical History History of cholecystectomy History of tonsillectomy H/O: hysterectomy Social History Smoking Status: Never smoker alcohol intake: never substance use type: does not use what type of physical activity do you participate in: none ROS ROS ED Constitutional Constitutional ED: Reports weight loss; Denies chills, fever(s) or subjective Eyes Eyes: Denies blurry vision or change in vision ENT ENT ED: Denies rhinorrhea or sore throat Cardiovascular Cardiovascular: Denies chest pain or palpitations Respiratory/Chest Respiratory/Chest: Denies cough, dyspnea or dyspnea on exertion Gastrointestinal Gastrointestinal: Reports diarrhea; Denies abdominal pain, nausea or vomiting Genitourinary Genitourinary ED: Denies dysuria or hematuria Musculoskeletal Musculoskeletal: Denies arthralgias or myalgias Integumentary Denies rash Neurologic Neurologic: Reports weakness Hematologic/Lymphatic Hematologic/Lymphatic: Reports systems reviewed and no addt'l complaints, except as documented EXAM Physical Exam Const Vital Signs: 03/05/25 07:27 03/05/25 08:25 Temperature 98 F Temperature Source Axillary Pulse Rate 80 65 Respiratory Rate 14 16 Blood Pressure 104/61 Blood Pressure Mean 75 Pulse Ox 97 97 Oxygen Delivery Method Room Air Room Air Positive well developed and cachectic Constitutional Narrative: Patient's face has the appearance of skin over her facial bones. She has temporal wasting. Her facial bones are easily identified. General Appearance ED: well developed and cachectic; Negative for pallor Nutritional Appearance: cachectic HEENT Reports dry mucous membranes HEENT Narrative: Ears are normal. Nares are patent. Uvula is midline. No deviation of the tongue with protrusion. Mouth ED: Yes dry mucous membranes Mouth: dry mucous membranes Eyes PERRL and EOMs intact bilaterally General Eye ED: Negative for scleral icterus Neck no lymphadenopathy, supple and no JVD Chest Wall inspection of chest normal and palpation of chest normal Resp normal respiratory effort and clear to auscultation bilaterally Cardio regular rate, regular rhythm, S1 normal heart sound, S2 normal heart sound and no murmurs GI normal to inspection, nondistended, normoactive bowel sounds, non-tender, non-distended and hepatosplenomegaly Back/Spine no CVA tenderness Back/Spine Narrative: The spinous processes of her spine is easily identified on examination of her back. Extremity normal to inspection Neuro CN's II-XII intact bilaterally Neuro Narrative: Awake. Answers questions. Moves all extremities. Negative Babinski sign. Sensorium / Orientation: Negative for alert Psych Mood & Affect: depressed Skin no rashes or lesions noted, no wounds and No skin turgor normal General Skin Exam: Negative for elasticity normal, jaundice or pallor MDM MDM MDM Narrative Medical decision making narrative: Daughter states last time she had this episode she was dehydrated. Patient's adult diaper was full of stool. It was mushy with formed stool. In my opinion this is not diarrhea. It was dark beige in color. There was no blood or mucus noted. Differential would be absence seizure, exacerbation of dementia, will evaluate for dehydration, electrolyte abnormality, recurrent urinary tract infection due to poor hygiene, pneumonia etc. Will determine if patient has a CODE STATUS identified. History & Record Review Additional record(s) reviewed:: Prior ED visit, Prior labs and Other (Going back approximately 20 years patient has no admissions.) Lab Data Attestation: I reviewed the patient's lab results. Lab results narrative: White count is normal. There is a slight shift but no bandemia. H&H is normal competence of metabolic panel is unremarkable. Glucose is 124 with a normal CO2 anion gap. Lactate slight elevated 2.1. Liver enzymes are normal. UA is consistent with infection. Urine culture was sent. Blood cultures were sent Labs: Laboratory Results - last 24 hr 03/05/25 03/05/25 09:08 09:31 WBC 7.9 RBC 4.51 Hgb 13.4 Hct 39.7 MCV 88.0 MCH 29.7 MCHC 33.8 RDW Std Deviation 42.3 RDW Coeff of Trini 13.1 Plt Count 203 MPV 11.4 Immature Gran % (Auto) 0.400 Neut % (Auto) 75.3 H Lymph % (Auto) 14.6 L [place] % (Auto) 9.1 Eos % (Auto) 0.1 Baso % (Auto) 0.5 Absolute Neuts (auto) 6.0 Absolute Lymphs (auto) 1.16 Nucleated RBC % 0 Sodium 140 Potassium 3.4 Chloride 105 Carbon Dioxide 23.7 Anion Gap 11 BUN 10 Creatinine 1.01 Estim Creat Clear Calc 24.62 L Est GFR (MDRD) Non-Af 56 L BUN/Creatinine Ratio 9.4 L Glucose 124 H Lactic Acid 2.1 H* Calcium 9.5 Total Bilirubin 0.66 AST 28 ALT 17 Alkaline Phosphatase 79 Total Protein 6.7 Albumin 3.9 Globulin 2.8 Albumin/Globulin Ratio 1.4 Urine Color Yellow Urine Clarity Cloudy Urine pH 6.0 Ur Specific [place] 1.020 Urine Protein 100 H Urine Glucose (UA) 50 H Urine Ketones Negative Urine Occult Blood 50 H Urine Nitrite Negative Urine Bilirubin Negative Urine Urobilinogen Normal Ur Leukocyte Esterase 500 H Urine RBC 0-5 SEEN Urine WBC 50-100 SEEN Ur Squamous Epith Cells 0-5 SEEN Urine Bacteria 3+ Urine Mucus 0 SEEN Radiography Chest X-Ray - ED: 2 View and Read by ED Physician (Independent reviewed interpreted by me at 0855. There is chronic changes noted. Cardiac silhouette and size normal. [place] normal. Osseous structures revealed no acute findings. There is evidence of hyperaeration.) Diagnostic Testing: Clinical Impression(s) from Imaging Studies Chest X-Ray 03/05/25 07:34 IMPRESSION: Hyperinflation. The lungs are clear. Reading Location: [facility] Treatment and Re-Evaluation :: Patient does have a living will. Discussed CODE STATUS. They are reluctant to have anyone attempted place an IV. They asked if I would put an IV. They were informed if I put an IV in it would either be in her neck under her collarbone or in her groin. They were informed of risk benefits of each 1 and that she would have to be cooperative because of potential significant injury to the vessel if she moved. They also were told that I reviewed her last culture and based on her last culture almost all the organisms were covered by levofloxacin. Another option would be to treat her orally and if her cultures indicated she was not sensitive to that antibiotic or she deteriorated she could come back and then would need an IV placed. No decision was made regarding CPR or intubation. They understand the seriousness of her condition. At this point will treat orally. They will take her home. They will be able to crush the tablets. I do not believe this is unreasonable. They also were informed that another option would be hospice and make her comfortable. They are not willing to accept this at this time. Procedures Other Procedures Procedure(s): Nursing staff, lab unable to obtain IV access or blood. Patient had blood drawn from the left femoral vein by me. The area was prepped draped. The vessel was cannulated on first attempt on the way in. If patient needs an IV will discuss patient's findings and determine extent of workup. Discharge Plan Triage Chief Complaint: Alt LOC ED Provider: Donald Segura Dx/Rx/DC Orders Clinical Impression: Complicated urinary tract infection, Encephalopathy acute, Dementia, Acidosis, lactic, Acute prerenal azotemia, DNR (do not resuscitate) discussion Instructions: ED Pyelonephritis, Female (Adult) Prescriptions: New levofloxacin 500 mg tablet 500 mg PO DAILY Qty: 6 0RF Rx Instructions: Crush tablet and give with applesauce No Action hydrochlorothiazide 25 mg tablet 25 mg PO DAILY Qty: 14 0RF ondansetron 4 mg tablet,disintegrating 4 mg PO Q8H PRN (Reason: nausea and vomiting) Qty: 14 0RF sulfamethoxazole-trimethoprim [Bactrim DS] 800-160 mg tablet 1 tab PO BID Qty: 14 0RF Primary Care Provider: Eliu Swanson Chi Referrals: Eliu Swanson Chi, MD [Primary Care Provider, Geriatrics] - 3-5 Days Print Language: Egyptian Disposition Disposition: Home, Self Care
--- OUTSIDE RECORDS SUMMARY | 2025-03-05 08:21 | XMS RPT_ITS | CCD ---
Author Organization [facility] Care Team Providers Care Insurance Examining Clerk Name Role Phone Sky MACHADO, Dr. Eliu Fernandez Primary Care Provider Sky MACHADO, Dr. Eliu Fernandez Attending Provider Sky MACHADO, Dr. Eliu Fernandez Primary Care Physician [phone] Dr. Leyla Ingram DO Emergency Department Physici an Eliu Swanson [facility] Unavailable Leyla Ingram Attending Unavailable Eliu Swanson [facility] Unavailable Eliu Swanson [facility] Attending Unavailable Allergies Allergy Classification Reported Allergen(s) Allergy Type Date of Onset Reaction(s) Facility (1 source) alendronate; Translations: [ALENDRONATE SODIUM] Drug Allergy 6 [facility] Repository (1 source) atorvastatin; Translations: [ATORVASTATIN CALCIUM] Drug Allergy 6 [facility] Repository (1 source) cephalexin; Translations: [CEPHALEXIN] Drug Allergy 6 [facility] Repository (1 source) ibandronate; Translations: [IBANDRONATE] Drug Allergy 6 [facility] Repository (1 source) iodine; Translations: [IODINE] Drug Allergy 4 [facility] Repository (1 source) lansoprazole; Translations: [LANSOPRAZOLE] Drug Allergy 6 [facility] Repository (1 source) Latex; Translations: [LATEX] Propensity to adverse reactions to drug (disorder) 6 [facility] Repository (1 source) simvastatin; Translations: [SIMVASTATIN] Drug Allergy 6 [facility] Repository (1 source) triamcinolone; Translations: [TRIAMCINOLONE ACETONIDE] Drug Allergy 6 [facility] Repository (1 source) PHENYLEPHRINE-GUAI FENESIN; Translations: [PHENYLEPHRINE-GUA IFENESIN] Propensity to adverse reactions to drug (disorder) 6 [facility] Repository (4 sources) Penicillins Allergy to substance 1 Swelling [facility] (4 sources) Triiodobenzoic Acids Allergy to substance 1 Unknown [facility] (1 source) Penicillins Drug allergy (disorder) 5 [facility] Repository (1 source) Iodinated Contrast Media Drug allergy (disorder) 5 [facility] Repository Medications Current Medications Medication Drug Class(es) Dates Sig (Normalized) Sig (Original) hydroCHLOROthiazide 25 mg oral tablet (4 sources) Thiazide Diuretic Start: 09-11-2020 take 1 tablet by mouth once daily ondansetron 4 mg disintegrating oral tablet (4 sources) Serotonin-3 Receptor Antagonist Start: 09-11-2020 take 1 tablet by mouth every eight hours as needed for nausea and vomiting sulfamethoxazole 800 mg / trimethoprim 160 mg oral tablet (1 source) Dihydrofolate Reductase Inhibitor Antibacterial, Sulfonamide Antimicrobial Start: 01-29-2025 Completed/Discontinued Medications Medication Drug Class(es) Dates Sig (Normalized) Sig (Original) acetaminophen 325 mg / HYDROcodone bitartrate 5 mg oral tablet (4 sources) Opioid Agonist Start: 08-25-2018 End: 08-28-2018 Hydrocodone-Acetami nophen 1 TABLET tablet Discontinued 1 {tbl} PO EVERY 6 HOURS NEEDED as needed for Pain 10 3 0 August 25, 2018 12:00am August 27, 2018 12:00am August 28, 2018 12:09am Dental abscess Periapical abscess without sinus Start: 08-25-2018 End: 08-28-2018 take 1 tablet by mouth every six hours as needed Hydrocodone-Acetaminophen Discontinued 1 TABLET PO EVERY 6 HOURS NEEDED 10 3 August 24, 2018 11:00pm August 27, 2018 11:09pm atorvastatin 10 mg oral tablet (4 sources) HMG-CoA Reductase Inhibitor Start: 04-12-2016 End: 04-12-2018 take 1 tablet by mouth at bedtime Atorvastatin 10 MG tablet Discontinued 10 mg PO AT BEDTIME April 12, 2016 1:00am April 12, 2018 5:56pm microencapsulated potassium chloride 20 meq extended release oral tablet (4 sources) Start: 03-10-2017 End: 04-12-2018 take 1 tablet by mouth once daily Potassium Chloride 20 MEQ tablet,ER particles/crystals Discontinued 20 meq PO DAILY March 10, 2017 12:00am April 12, 2018 5:56pm sucralfate 1000 mg oral tablet (4 sources) Aluminum Complex Start: 03-10-2017 End: 04-12-2018 take 1 tablet by mouth four times daily Sucralfate 1 GM tablet Discontinued 1 g PO 4 TIMES DAILY 28 0 March 10, 2017 12:00am April 12, 2018 5:56pm Problems Problem Classification Problem Date Documented Da te Episodic/Chronic Disorders of lipid metabolism (1 source) Hyperlipidemia, unspecified; Translations: [Hyperlipidemia, unspecified] Onset: 08-01-2024 Chronic Disorders of teeth and jaw (4 sources) Dental abscess; Translations: [Periapical abscess without sinus] 08-26-2018 Episodic Essential hypertension (8 sources) Hypertensive disorder; Translations: [Essential (primary) hypertension] 01-04-2017 Chronic Malaise and fatigue (4 sources) Asthenia; Translations: [Weakness] 09-12-2020 Episodic Nausea and vomiting (4 sources) Vomiting; Translations: [Vomiting, unspecified] 09-12-2020 Episodic Open wounds of extremities (1 source) Laceration of left lower leg; Translations: [Laceration without foreign body, left lower leg, initial encounter] 01-29-2025 Episodic Other bone disease and musculoskeletal deformities (12 sources) Segmental and somatic dysfunction; Translations: [Segmental and somatic dysfunction of cervical region] 08-25-2018 Episodic Other gastrointestinal disorders (1 source) Diarrhea; Translations: [Diarrhea, unspecified] 01-29-2025 Episodic Other gastrointestinal disorders (1 source) Diarrhea, unspecified; Translations: [Diarrhea, unspecified] Onset: 02-04-2025 Episodic Urinary tract infections (1 source) Acute urinary tract infection; Translations: [Urinary tract infection, site not specified] 01-29-2025 Episodic Results Test Name Value Interpretation Reference Range Facility Urine Cultureon 02-04-2025 [facility] Urine Culture Klebsiella pneumoniae sp pneum [place] Count <1000 Pseudomonas stutzeri Pseudomonas stutzeri ECOL [place] Count <1000 Escherichia coli [place] Count <1000 Klebsiella pneumoniae sp pneum: REACTION Strep salivarius sp salivarius Ampicillin+Sulbac Islt SERINA 4 Cefepime Islt SERINA <=0.12 S cefTRIAXone Islt SERINA <=0.25 Ciprofloxacin Islt SERINA <=0.06 S B-Lactamase Extended Susc Islt NEG Gentamicin Islt SERINA <=1 S levoFLOXacin Islt SERINA <=0.12 S Meropenem Islt SERINA <=0.25 S Nitrofurantoin Islt SERINA 32 S Pip+Tazo Islt SERINA <=4 S TMP SMX Islt SERINA <=20 S Pseudomonas stutzeri: REACTION levoFLOXacin Islt SERINA 0.25 S Meropenem Islt SERINA 1 S Pip+Tazo Islt SERINA <=4 S Pseudomonas stutzeri: REACTION Amikacin Islt SERINA 2 S Doxycycline Islt SERINA 2 S Imipenem Islt SERINA <=0.5 S Escherichia coli: REACTION Ampicillin Islt SERINA 8 S Ampicillin+Sulbac Islt SERINA 4 S Cefepime Islt SERINA <=0.12 S cefTRIAXone Islt SERINA <=0.25 Ciprofloxacin Islt SERINA <=0.06 S B-Lactamase Extended Susc Islt NEG Gentamicin Islt SERINA <=1 S levoFLOXacin Islt SERINA <=0.12 S Meropenem Islt SERINA <=0.25 S Nitrofurantoin Islt SERINA <=16 S Pip+Tazo Islt SERINA <=4 S TMP SMX Islt SERINA <=20 S Strep salivarius sp salivarius: REACTION Ampicillin Islt SERINA <=0.25 S Penicillin G Islt SERINA 0.25 I Cefotaxime Islt SERINA <=0.12 S cefTRIAXone Islt SERINA <=0.12 Linezolid Islt SERINA <=2 S Vancomycin Islt SERINA 0.5 S Normal [facility] Comment on above: Performed By: #### M 100.2038 #### [facility] [address] [place], [address] Abdomen/Pelvis without Conto n 01-29-2025 Abdomen/Pelvis without Cont [facility] Services [address] [address] Abdomen/Pelvis without Cont MR#: [id number] Acct: [id number] Name: YUNG PHAM Rep #: [id number] : 1945 F 79 From: Hermilo burton MD PCP: Dr. Eliu Swanson MD Status: REG ER Study: Abdomen/Pelvis without Cont Date of Exam: 01/13 12/06 Exam# [id number] Ordering Dr: Leyla Ingram DO PROCEDURE: ABDOMEN/PELVIS WITHOUT CONT 01/29/2025 REASON FOR EXAM: ABDOMINAL PAIN Prior hysterectomy and cholecystectomy. TECHNIQUE: Procedure Code: CTABDPEL Modality: CT Procedure: ABDOMEN/PELVIS WITHOUT CONT Noncontrast technique limits evaluation of the abdominal and pelvic viscera. Coronal and Sagittal reconstruction series were provided. One or more dose reduction techniques were used (e.g., Automated exposure control, adjustment of the mA and/or kV according to patient size, use of iterative reconstruction technique). RADIATION DOSE SUMMARY: CTDlvol: 6.04 mGy DLP: 250.64 mGycm COMPARISON: Prior study dated September 11, 2020. FINDINGS: Lung bases: Minimal increased linear markings at the left lung base suggestive of scarring. Liver: Normal size. No obvious mass. Gallbladder: Surgically absent. Spleen: Scattered splenic granulomas. Pancreas: Diffuse fatty atrophy. Adrenals: Unremarkable Kidneys: No urolithiasis. No hydronephrosis. Bladder: Unremarkable Reproductive Organs: Prior hysterectomy. Adnexal regions are unremarkable. Bowel: Sigmoid diverticulosis. Scattered diverticula are also seen in the right hemicolon. Appendix: The appendix is not identified. There is no inflammatory process identified in the right lower quadrant to suggest appendicitis. Lymph nodes: Unremarkable. Vasculature: Mild diffuse atherosclerotic calcifications are noted. Peritoneum / Retroperitoneum: No ascites Bones: Loss of the normal lumbar lordosis. Minimal anterior listhesis of L4 on L5. CT/Abdomen/Pelvis without Cont IMPRESSION: Scattered diverticula throughout the colon more prominent in the sigmoid colon. No acute abnormality is seen. Stable examination. Reading Location: [place] [address] CC: Dr. Leyla Ingram DO; Dr. Eliu Swanosn MD Record Press Operator: Signed Normal [facility] Absolute lymphocyte countOrd ered By: Leyla Ingram on 01-29-2025 Lymphocytes Auto (Unsp spec) [#/Vol] 1.85 10*3/uL 0.83-4.51 [facility] Absolute neutrophil countOrd ered By: Leyla Ingram on 01-29-2025 Neutrophils (Bld) [#/Vol] 5.6 10*3/uL 2.0-7.7 [facility] Anion gap in Serum or Plasma Ordered By: Leyla Ingram on 01-29-2025 Anion gap [Moles/Vol] 13 mmol/L 09-26 [facility] Automated lymphocyte count a s percentage of total leukocytesOrdered By: [facility] on 01-29-2025 Lymphocytes/100 WBC Auto (Unsp spec) 23.3 % [facility] BUN/creatinine ratioOrdered By: [facility] on 01-29-2025 Urea nitrogen/Creatinine [Mass ratio] 14.8 mg/mg - [facility] Basic Metabolic Profile (BMP )on 01-29-2025 BUN/CRE 14.8 RATIO Normal - [facility] Comment on above: Performed By: #### L 500.2500, L100.0100, L503.6005 #### [facility] [address] [place], [address] Calcium [Mass/Vol] 9.7 mg/dL Normal 7.6-11.0 [facility] Comment on above: Performed By: #### L 500.2500, L100.0100, L503.6005 #### [facility] [address] [place], [address] Chloride [Moles/Vol] 107 mmol/L Normal 98-108 [facility] Comment on above: Performed By: #### L 500.2500, L100.0100, L503.6005 #### [facility] [address] [place], [address] CO2 [Moles/Vol] 24.0 mmol/L Normal 21.0-32.0 [facility] Comment on above: Performed By: #### L 500.2500, L100.0100, L503.6005 #### [facility] [address] [place], [address] Creatinine [Mass/Vol] 1.04 mg/dL Normal 0.70-1.20 [facility] Comment on above: Performed By: #### L 500.2500, L100.0100, L503.6005 #### [facility] [address] [place], [address] ECRCL 26.97 ml/min Low 50-250 [facility] Comment on above: Performed By: #### L 500.2500, L100.0100, L503.6005 #### [facility] [address] [place], [address] GAP 13 Normal 5-15 [facility] Comment on above: Performed By: #### L 500.2500, L100.0100, L503.6005 #### [facility] [address] [place], [address] GFR/1.73 sq M.predicted among non-blacks MDRD (S/P/Bld) [Vol rate/Area] 54 mL/min/{1.73_m2} Low >60 [facility] Comment on above: Result Comment: mL/m in/1.73m2 CKD-EPI Creatinine Equation (2020) Performed By: #### L 500.2500, L100.0100, L503.6005 #### [facility] [address] [place], [address] Glucose [Mass/Vol] 136 mg/dL High 70-99 [facility] Comment on above: Performed By: #### L 500.2500, L100.0100, L503.6005 #### [facility] [address] [place], [address] Potassium [Moles/Vol] 3.7 mmol/L Normal 3.3-5.1 [facility] Comment on above: Performed By: #### L 500.2500, L100.0100, L503.6005 #### [facility] [address] [place], [address] Sodium [Moles/Vol] 144 mmol/L Normal 133-145 [facility] Comment on above: Performed By: #### L 500.2500, L100.0100, L503.6005 #### [facility] [address] [place], [address] Urea nitrogen [Mass/Vol] 15 mg/dL Normal 4-19 [facility] Comment on above: Performed By: #### L 500.2500, L100.0100, L503.6005 #### [facility] [address] [place], [address] Basophil percentageOrdered B y: Remus Nataly on 01-29-2025 Basophils/100 WBC (Bld) 0.4 % 0-1 [facility] Bilirubin Test strip Ql (U)O rdered By: Remus Nataly on 01-29-2025 Bilirubin Ql (U) Negative Negative [facility] CBC W/Diff, Automatedon 01-13 Absolute Lymph 1.85 X10 3/uL Normal 0.83-4.51 [facility] Comment on above: Performed By: #### L 500.2500, L100.0100, L503.6005 #### [facility] [address] [place], [address] Absolute Neut 5.6 X10 3/uL Normal 2.0-7.7 [facility] Comment on above: Performed By: #### L 500.2500, L100.0100, L503.6005 #### [facility] [address] [place], [address] Basophils/100 WBC (Bld) 0.4 % Normal 0-1 [facility] Comment on above: Performed By: #### L 500.2500, L100.0100, L503.6005 #### [facility] [address] [place], [address] Eosinophils/100 WBC (Bld) 0.5 % Normal 0-5 [facility] Comment on above: Performed By: #### L 500.2500, L100.0100, L503.6005 #### [facility] [address] [place], [address] Erythrocyte distribution width (RBC) [Ratio] 13.0 % Normal 11.6-14.6 [facility] Comment on above: Performed By: #### L 500.2500, L100.0100, L503.6005 #### [facility] [address] [place], [address] Hematocrit (Bld) [Volume fraction] 43.1 % Normal 37-47 [facility] Comment on above: Performed By: #### L 500.2500, L100.0100, L503.6005 #### [facility] [address] [place], [address] Hemoglobin (Bld) [Mass/Vol] 13.8 g/dL Normal 12.0-15.0 [facility] Comment on above: Performed By: #### L 500.2500, L100.0100, L503.6005 #### [facility] [address] [place], [address] IG% 0.600 Normal 0.0-0.9 [facility] Comment on above: Result Comment: IG% - Immature Granulocytes (promyelocytes, myelocytes and metamyelocytes) > 1% indicates that a LEFT SHIFT is Present. Performed By: #### L 500.2500, L100.0100, L503.6005 #### [facility] [address] [place], [address] Lymphocytes/100 WBC (Bld) 23.3 % Normal 19-41 [facility] Comment on above: Performed By: #### L 500.2500, L100.0100, L503.6005 #### [facility] [address] [place], [address] MCH (RBC) [Entitic mass] 29.7 pg Normal 27.0-32.0 [facility] Comment on above: Performed By: #### L 500.2500, L100.0100, L503.6005 #### [facility] [address] [place], [address] MCHC (RBC) [Mass/Vol] 32.0 g/dL Normal 32-36 [facility] Comment on above: Performed By: #### L 500.2500, L100.0100, L503.6005 #### [facility] [address] [place], [address] MCV (RBC) [Entitic vol] 92.7 fL Normal 81-99 [facility] Comment on above: Performed By: #### L 500.2500, L100.0100, L503.6005 #### [facility] [address] [place], [address] Monocytes/100 WBC (Bld) 4.4 % Normal 0-10 [facility] Comment on above: Performed By: #### L 500.2500, L100.0100, L503.6005 #### [facility] [address] [place], [address] Neutrophils/100 WBC (Bld) 70.8 % High 47-70 [facility] Comment on above: Performed By: #### L 500.2500, L100.0100, L503.6005 #### [facility] [address] [place], [address] Nucleated RBC (Bld) [#/Vol] 0 10*3/uL Normal 0-5 [facility] Comment on above: Performed By: #### L 500.2500, L100.0100, L503.6005 #### [facility] [address] [place], [address] Platelet mean volume (Bld) [Entitic vol] 12.5 fL High 6.2-12.0 [facility] Comment on above: Performed By: #### L 500.2500, L100.0100, L503.6005 #### [facility] [address] [place], [address] Platelets (Bld) [#/Vol] 195 10*3/uL Normal 150-450 [facility] Comment on above: Performed By: #### L 500.2500, L100.0100, L503.6005 #### [facility] [address] [place], [address] RBC (Bld) [#/Vol] 4.65 10*6/uL Normal 4.2-5.4 [facility] Comment on above: Performed By: #### L 500.2500, L100.0100, L503.6005 #### [facility] [address] [place], [address] RDW SD 43.8 fl Normal 35.1-43.9 [facility] Comment on above: Performed By: #### L 500.2500, L100.0100, L503.6005 #### [facility] [address] [place], [address] WBC (Bld) [#/Vol] 7.9 10*3/uL Normal 4.4-11.0 [facility] Comment on above: Performed By: #### L 500.2500, L100.0100, L503.6005 #### [facility] [address] [place], [address] Carbon dioxide, total [Moles /volume] in Central venous bloodOrdered By: Leyla Ingram on 01-29-2025 CO2 [Moles/Vol] 24.0 mmol/L 21.0-32.0 [facility] Chloride assayOrdered By: Anne Marie Ingram on 01-29-2025 Chloride [Moles/Vol] 107 mmol/L 98-108 [facility] Emergency Department Summary on 01-29-2025 Emergency Department Summary [facility] Medical Records Department [address] [place] [address] Emergency Department Summary 01/29/25 MR#: [id number] Acct: [id number] Name: YUNG PHAM Rep #: [id number] : 1945 79 From: Leyla Ingram DO PCP: Dr. Eliu Swanson MD Status:DEP ER Location: ED HPI HPI - GI History of Present Illness Chief Complaint: Diarrhea Detail of Chief Complaint: Diarrhea and left leg laceration Informant: patient and family Narrative Narrative: Patient presents to the emergency department with complaint of diarrhea that started this morning. She has not been on antibiotics. She lives with family members and has history of dementia. Patient also had a cut on her left leg but the daughter does not think she fell and possibly may have cut her leg with her nail. Unsure of last tetanus shot. Patient denies any abdominal pain currently. Patient states she had a hard time sleeping last night. She said no fever or chills or sweats. She denies urinary symptoms. [facility] Medical History (Updated 01/29/25 @ 14:[address] Leyla Ingram DO) Anxiety Depression Hypertension GERD (gastroesophageal reflux disease) High cholesterol Headaches, cluster Arthritis Home Medications ???Medication ???Instructions ???Recorded ???Last Taken ???Type hydrochlorothiazide 25 mg tablet 25 mg PO DAILY #14 tabs 09/11/20 U nknown Rx ondansetron 4 mg disintegrating 4 mg PO Q8H PRN nausea and 1 Unknown Rx tablet vomiting #14 tabs sulfamethoxazole 800 1 tab PO BID #14 tabs 01/29/25 Unk nown Rx mg-trimethoprim 160 mg tablet (Bactrim DS) Allergy/AdvReac Type Severity Reaction Status Date / Time Iodinated Contrast Media Allergy Unknown Unknown Verified 01/29/25 10:35 (Iodinated Contrast Media - IV Dye) Penicillins Allergy Swelling Verified 01/29/25 10:35 Surgical History History of cholecystectomy History of tonsillectomy H/O: hysterectomy Social History (Updated 04/16/18 @ 15:[address] Rasheeda Degroot, INDR[facility]) Smoking Status: Never smoker alcohol intake: never substance use type: does not use what type of physical activity do you participate in: none ROS ROS ED Review of Systems ROS Unobtainable: other Constitutional Constitutional ED: Reports lethargy; Denies chills, fever(s), sweats or weight loss Eyes Eyes: Denies blurry vision, change in vision or diplopia ENT ENT ED: Denies rhinorrhea or sore throat Cardiovascular Cardiovascular: Denies chest pain, orthopnea or racing heartbeat Respiratory/Chest Respiratory/Chest: Denies cough, dyspnea, dyspnea on exertion, orthopnea or sputum Gastrointestinal Gastrointestinal: Reports diarrhea; Denies abdominal pain, nausea or vomiting Genitourinary Genitourinary ED: Denies dysuria, hematuria or urinary frequency Musculoskeletal Musculoskeletal: Denies arthralgias, back pain, myalgias or neck pain Integumentary Reports other Details: Left leg laceration ; Denies abscess, Abrasions or rash Neurologic Neurologic: Denies headache(s) or weakness Psychiatric Psychiatric: Denies anxiety, depression or suicidal thoughts Endocrine Endocrinology: Denies polydipsia, polyphagia or polyuria Hematologic/Lymphatic Hematologic/Lymphatic: Denies easy bleeding, easy bruising or lymphadenopathy Allergic/Immunologic Allergic/Immunologic ED: Denies mouth swelling, tongue swelling or urticaria EXAM Physical Exam Const Vital Signs: 01/29/25 09:59 01/29/25 11:57 01/29/25 13:00 Temperature 97.5 F L Temperature Source Oral Pulse Rate 77 70 77 Respiratory Rate 16 15 Blood Pressure 121/72 H 148/93 H Blood Pressure Mean 88 111 Pulse Ox 92 97 94 Oxygen Delivery Method Room Air Positive well nourished and well developed General Appearance ED: well developed and NAD HEENT Reports TM's clear and moist mucous membranes normocephalic and atraumatic; Negative for trauma or tenderness Tympanic Membrane ED: Yes TM's clear Eyes PERRL and EOMs intact bilaterally General Eye ED: Negative for pale conjunctiva or scleral icterus Neck no lymphadenopathy, supple and no JVD General: Negative for tenderness Chest Wall inspection of chest normal and palpation of chest normal Chest: Negative for tenderness Resp normal respiratory effort and clear to auscultation bilaterally Effort and Inspection: Negative for respiratory distress or pain with movement Auscultation: Negative for rhonchi, wheezes or diminished lung sounds Cardio regular rate, regular rhythm, S1 normal heart sound, S2 normal heart sound and no murmurs Peripheral Pulses: pulses 2+ throughout GI normal to inspection, nondistended, normoactive bowel sounds, soft to palpation, non-tender, non- distended and no masses GI Narrative: Rectal exam-b (more content not included)... Normal [facility] Eosinophil percentageOrdered By: Leyla Ingram on 01-29-2025 Eosinophils/100 WBC (Bld) 0.5 % 0-5 [facility] Erythrocyte distribution wid th ratioOrdered By: [facility] In[facility] on 01-29-2025 Erythrocyte distribution width (RBC) [Ratio] 13.0 % 11.6-14.6 [facility] Erythrocyte distribution wid th standard deviationOrdered By: [facility] In[facility] on 01-29-2025 Erythrocyte distribution width (RBC) [Ratio] 43.8 fl 35.1-43.9 [facility] Glomerular filtration rate ( GFR) estimation/1.73 sq m using serum, plasma, or whole bOrdered By: Leyla Ingram on 01-29-2025 GFR/1.73 sq M.predicted among non-blacks MDRD (S/P/Bld) [Vol rate/Area] 54 mL/min/{1.73_m2} Low >60 [facility] Comment on above: mL/min/1.73m2 CKD-EP I Creatinine Equation (2020) HIP, UNI W/ Pelvis 2-3 Views on 01-29-2025 HIP, UNI W/ Pelvis 2-3 Views [facility] Imaging Services [address], [place] [id number] HIP, UNI W/ Pelvis 2-3 Views MR#: [id number] Acct: [id number] Name: YUNG PHAM Rep #: [id number] : 1945 F 79 From: Hermilo burton MD PCP: Dr. Eliu Swanson MD Status: PRE ER Study: HIP, UNI W/ Pelvis 2-3 Views Date of Exam: Exam# [id number] Ordering Dr: Leyla Ingram DO PROCEDURE: HIP, UNI W/ PELVIS 2-3 VIEWS 01/29/2025 REASON FOR EXAM: PAIN Left hip pain following a fall. TECHNIQUE: Procedure Code: RADHP Modality: DX Procedure: HIP, UNI W/ PELVIS 2-3 VIEWS Laterality: Left hip COMPARISON: None FINDINGS: Bones: No fracture is seen. Joints: Degenerative changes of the sacroiliac joints and both hip joints. Soft tissues: Soft tissue calcification. Fecal material seen in the rectosigmoid colon. Other: RAD/HIP, UNI W/ Pelvis 2-3 Views IMPRESSION: Degenerative changes. No fracture is seen. Reading Location: [place] [address] CC: Dr. Leyla Ingram DO; Dr. Eliu Swanson MD Record Press Operator: Signed Normal [facility] Hematocrit Auto (Bld) [Volum e fraction]Ordered By: Leyla Ingram on 01-29-2025 Hematocrit (Bld) [Volume fraction] 43.1 % 37-47 [facility] Hemoglobin measurementOrdere d By: Leyla Ingram on 01-29-2025 Hemoglobin (Bld) [Mass/Vol] 13.8 g/dL 12.0-15.0 [facility] Immature granulocytes/100 WB C Auto (Bld)Ordered By: Leyla Ingram on 01-29-2025 Immature granulocytes/100 WBC (Bld) 0.600 % 0.0-0.9 [facility] Comment on above: IG% - Immature Granu locytes (promyelocytes, myelocytes and metamyelocytes) > 1% indicates that a LEFT SHIFT is Present. Ketones Test strip Ql (U)Ord ered By: Leyla Ingram on 01-29-2025 Ketones Ql (U) 5 mg/dl High Negative [facility] Lactic Acidon 01-29-2025 Lactate [Moles/Vol] 2.5 mmol/L Invalid Interpretation Code 0.0-2.0 [facility] Comment on above: Order Comment: Y Result Comment: Crit ical Result(s) Called at: 1124 01/29/2025 by: GM MARIE??Results read back by same. Performed By: #### L 500.2500, L100.0100, L503.6005 #### [facility] [place], [address] Lactic acid measurementOrder ed By: Leyla Ingram on 01-29-2025 Lactate [Moles/Vol] 2.5 mmol/L Critically high 0.0-2.0 [facility] Comment on above: Critical Result(s) C alled at: 1124 01/29/2025 by: GM MARIE Results read back by same. MCV (mean corpuscular volume ) determinationOrdered By: Leyla Ingram on 01-29-2025 MCV (RBC) [Entitic vol] 92.7 fL 81-99 [facility] Mean corpuscular hemoglobin (MCH) determinationOrdered By: Leyla Ingram on 01-29-2025 MCH (RBC) [Entitic mass] 29.7 pg 27.0-32.0 [facility] Mean corpuscular hemoglobin concentration (MCHC) determinationOrdered By: Leyla Ingram on 01-29-2025 MCHC (RBC) [Mass/Vol] 32.0 g/dL 32-36 [facility] Mean platelet volume determi nationOrdered By: Leyla Ingram on 01-29-2025 Platelet mean volume (Bld) [Entitic vol] 12.5 fL High 6.2-12.0 [facility] Microscopic analysis of urin e for red blood cells (RBC)Ordered By: Leyla Ingram on 01-29-2025 Microscopic analysis of urine for red blood cells (RBC) 0 SEEN /hpf 0-5 [facility] Monocyte percentageOrdered B y: Leyla Ingram on 01-29-2025 Monocytes/100 WBC (Bld) 4.4 % 0-10 [facility] Mucus LM Ql (Urine sed)Order ed By: Leyla Ingram on 01-29-2025 Mucus Ql (Urine sed) 0 SEEN /hpf [facility] Neutrophil percentageOrdered By: Leyla Ingram on 01-29-2025 Neutrophils/100 WBC (Bld) 70.8 % High 47-70 [facility] Nitrite Test strip Ql (U)Ord ered By: Leyla Ingram on 01-29-2025 Nitrite Ql (U) Negative Negative [facility] Nucleated red blood cell per centageOrdered By: Leyla Gibsonange on 01-29-2025 Nucleated RBC/100 WBC (Bld) [Ratio] 0 % 0-5 [facility] Platelet countOrdered By: Anne Marie Ingram on 01-29-2025 Platelets (Bld) [#/Vol] 195 10*3/uL 150-450 [facility] Potassium measurement (mass/ volume)Ordered By: Leyla Ingram on 01-29-2025 Potassium (Unsp spec) [Mass/Vol] 3.7 mmol/L 3.3-5.1 [facility] Protein Test strip Ql (U)Ord ered By: Leyla Ingram on 01-29-2025 Protein Ql (U) 30 mg/dl High Negative [facility] RBC Auto (Bld) [#/Vol]Ordere d By: Leyla Ingram on 01-29-2025 RBC (Bld) [#/Vol] 4.65 10*6/uL 4.2-5.4 [facility] Serum creatinine measurement (mass/volume)Ordered By: Leyla Ingram on 01-29-2025 Creatinine [Mass/Vol] 1.04 mg/dL 0.70-1.20 [facility] Serum glucose measurement (m ass/volume)Ordered By: Leyla Ingram on 01-29-2025 Glucose [Mass/Vol] 136 mg/dL High 70-99 [facility] Serum or plasma calcium onelia urement (mass/volume)Ordered By: Leyla Ingram on 01-29-2025 Calcium [Mass/Vol] 9.7 mg/dL 7.6-11.0 [facility] Serum or plasma urea nitroge n measurement (mass/volume)Ordered By: Leyla Ingram on 01-29-2025 Urea nitrogen [Mass/Vol] 15 mg/dL 4-19 [facility] Sodium levelOrdered By: Santy Ingram on 01-29-2025 Sodium [Moles/Vol] 144 mmol/L 133-145 [facility] Squamous epithelial cells de tection in urine sediment by light microscopyOrdered By: Leyla Ingram on 01-29-2025 Epithelial cells.squamous LM Ql (Urine sed) 0-5 SEEN /hpf 5-10 [facility] Stool Occult Blood iFOBon STOB Positive Normal [facility] Comment on above: Performed By: #### M 100.7900 #### [facility] [address] [place], [address] Stool gastrointestinal hemog lobin detection by immunologic methodOrdered By: Leyla Ingram on 01-29-2025 Lower GI hemoglobin IA Ql (Stl) Positive Abnormal [facility] Urinalysis, Completeon 01-29 BACTERIA 1+ /hpf Normal None Seen [facility] Comment on above: Order Comment: JAZMINE CTOR TO SPECIFY Performed By: #### L 500.4100, L500.4050, L100.0100 #### [facility] [address] [place], [address] EPI,RENAL 0-5 SEEN Normal 0-5 [facility] Comment on above: Order Comment: JAZMINE CTOR TO SPECIFY Performed By: #### L 500.4100, L500.4050, L100.0100 #### [facility] [address] [place], [address] EPI,SQUAMOUS 0-5 SEEN Normal 5-10 [facility] Comment on above: Order Comment: JAZMINE CTOR TO SPECIFY Performed By: #### L 500.4100, L500.4050, L100.0100 #### [facility] [address] [place], [address] WBC 50-100 SEEN Normal 0-5 [facility] Comment on above: Order Comment: JAZMINE CTOR TO SPECIFY Performed By: #### L 500.4100, L500.4050, L100.0100 #### [facility] [address] [place], [address] Mucus Ql (Urine sed) 0 SEEN Normal [facility] Comment on above: Order Comment: JAZMINE CTOR TO SPECIFY Performed By: #### L 500.4100, L500.4050, L100.0100 #### [facility] [address] [place], [place], [id number] RBC 0 SEEN Normal 0-5 [facility] Comment on above: Order Comment: COLLE CTOR TO SPECIFY Performed By: #### L 500.4100, L500.4050, L100.0100 #### [facility] [address] [place], [place], [address] Urine clarityOrdered By: Sandra Ingram on 01-29-2025 Clarity (U) Cloudy Clear [facility] Urine color determinationOrd ered By: Leyla Ingram on 01-29-2025 Color (U) Yellow Yellow [facility] Urine glucose detectionOrder ed By: Leyla Ingram on 01-29-2025 Glucose Ql (U) Normal mg/dl Normal [facility] Urine leukocyte esterase det ection by dipstickOrdered By: Leyla Ingram on 01-29-2025 Leukocyte esterase Test strip Ql (U) 500 /ul High Negative [facility] Urine pHOrdered By: Leyla Un gur on 01-29-2025 pH (U) 6.0 [pH] 5.0 - 8.0 [facility] Urine sediment bacteria coun t by microscopy (number/high power field)Ordered By: Leyla Ingram on 01-29-2025 Bacteria LM.HPF (Urine sed) [#/Area] 1 /[HPF] None Seen [facility] Urine sediment renal epithel ial cell count by microscopy (number/high power field)Ordered By: Leyla Ingram on 01-29-2025 Epithelial cells.renal LM.HPF (Urine sed) [#/Area] 0 /[HPF] 0-5 [facility] Urine specific gravity measu rementOrdered By: Leyla Ingram on 01-29-2025 Specific gravity (U) [Rel density] 1.020 1.002-1.030 [facility] Urine urobilinogen measureme ntOrdered By: Leyla Ingram on 01-29-2025 Urobilinogen Ql (U) Normal mg/dl Normal [facility] White blood cell (WBC) count Ordered By: Leyla Ingram on 01-29-2025 WBC (Bld) [#/Vol] 7.9 10*3/uL 4.4-11.0 [facility] White blood cell countOrdere d By: Leyla Ingram on 01-29-2025 White blood cell count 50-100 SEEN /hpf 0-5 [facility] CBC W/Diff, Automatedon 08- Absolute Neut Normal 2.0-7.7 [facility] Comment on above: Result Comment: UTO X1, PTS DAUGHTER SAID THEY MAY GO TO OUTPATIENT TO TRY THERE. LMARTELL 25 Performed By: #### L 500.4100, L500.4050, L100.0100 #### [facility] [address] [place], [address] HCT Normal 37-47 [facility] Comment on above: Result Comment: UTO X1, PTS DAUGHTER SAID THEY MAY GO TO OUTPATIENT TO TRY THERE. LMARTELL 25 Performed By: #### L 500.4100, L500.4050, L100.0100 #### [facility] [address] [place], [address] HGB Normal 12.0-15.0 [facility] Comment on above: Result Comment: UTO X1, PTS DAUGHTER SAID THEY MAY GO TO OUTPATIENT TO TRY THERE. LMARTELL 25 Performed By: #### L 500.4100, L500.4050, L100.0100 #### [facility] [address] [place], [address] MCH Normal 27.0-32.0 [facility] Comment on above: Result Comment: UTO X1, PTS DAUGHTER SAID THEY MAY GO TO OUTPATIENT TO TRY THERE. LMARTELL 25 Performed By: #### L 500.4100, L500.4050, L100.0100 #### [facility] [address] [place], [address] MCHC Normal 32-36 [facility] Comment on above: Result Comment: UTO X1, PTS DAUGHTER SAID THEY MAY GO TO OUTPATIENT TO TRY THERE. LMARTELL 8-25 Performed By: #### L 500.4100, L500.4050, L100.0100 #### [facility] [address] [place], [address] MCV Normal 81-99 [facility] Comment on above: Result Comment: UTO X1, PTS DAUGHTER SAID THEY MAY GO TO OUTPATIENT TO TRY THERE. LMARTELL 8-29-25 Performed By: #### L 500.4100, L500.4050, L100.0100 #### [facility] [address] [place], [address] NEUT% Normal 47-70 [facility] Comment on above: Result Comment: UTO X1, PTS DAUGHTER SAID THEY MAY GO TO OUTPATIENT TO TRY THERE. LMARTELL 8-25 Performed By: #### L 500.4100, L500.4050, L100.0100 #### [facility] [address] [place], [address] PLT Normal 150-450 [facility] Comment on above: Result Comment: UTO X1, PTS DAUGHTER SAID THEY MAY GO TO OUTPATIENT TO TRY THERE. LMARTELL 8-25 Performed By: #### L 500.4100, L500.4050, L100.0100 #### [facility] [address] [place], [address] RBC Normal 4.2-5.4 [facility] Comment on above: Result Comment: UTO X1, PTS DAUGHTER SAID THEY MAY GO TO OUTPATIENT TO TRY THERE. LMARTELL 8-25 Performed By: #### L 500.4100, L500.4050, L100.0100 #### [facility] [address] [place], [address] RDW CV Normal 11.6-14.6 [facility] Comment on above: Result Comment: UTO X1, PTS DAUGHTER SAID THEY MAY GO TO OUTPATIENT TO TRY THERE. LMARTELL 01-10-25 Performed By: #### L 500.4100, L500.4050, L100.0100 #### [facility] [address] [place], [address] RDW SD Normal 35.1-43.9 [facility] Comment on above: Result Comment: UTO X1, PTS DAUGHTER SAID THEY MAY GO TO OUTPATIENT TO TRY THERE. LMARTELL 01-10-25 Performed By: #### L 500.4100, L500.4050, L100.0100 #### [facility] [address] [place], [address] WBC Normal 4.4-11.0 [facility] Comment on above: Result Comment: UTO X1, PTS DAUGHTER SAID THEY MAY GO TO OUTPATIENT TO TRY THERE. LMARTELL 01-10-25 Performed By: #### L 500.4100, L500.4050, L100.0100 #### [facility] [address] [place], [address] Comprehensive Metabolic Prof ilon 01-10-2025 ALB Normal 3.4-4.8 [facility] Comment on above: Result Comment: UTO X1, PTS DAUGHTER SAID THEY MAY GO DOWN TO OUTPATIENT AND TRY THERE. Performed By: #### L 500.4100, L500.4050, L100.0100 #### [facility] [address] [place], [address] ALK PHOS Normal 35-104 [facility] Comment on above: Result Comment: UTO X1, PTS DAUGHTER SAID THEY MAY GO DOWN TO OUTPATIENT AND TRY THERE. Performed By: #### L 500.4100, L500.4050, L100.0100 #### [facility] [address] [place], [address] ALT Normal <=34 [facility] Comment on above: Result Comment: UTO X1, PTS DAUGHTER SAID THEY MAY GO DOWN TO OUTPATIENT AND TRY THERE. Performed By: #### L 500.4100, L500.4050, L100.0100 #### [facility] [address] [place], [address] AST Normal <=31 [facility] Comment on above: Result Comment: UTO X1, PTS DAUGHTER SAID THEY MAY GO DOWN TO OUTPATIENT AND TRY THERE. Performed By: #### L 500.4100, L500.4050, L100.0100 #### [facility] [address] [place], [address] BUN Normal 4-19 [facility] Comment on above: Result Comment: UTO X1, PTS DAUGHTER SAID THEY MAY GO DOWN TO OUTPATIENT AND TRY THERE. Performed By: #### L 500.4100, L500.4050, L100.0100 #### [facility] [address] [place], [address] BUN/CRE Normal 10-20 [facility] Comment on above: Result Comment: UTO X1, PTS DAUGHTER SAID THEY MAY GO DOWN TO OUTPATIENT AND TRY THERE. Performed By: #### L 500.4100, L500.4050, L100.0100 #### [facility] [address] [place], [address] Calcium Normal 7.6-11.0 [facility] Comment on above: Result Comment: UTO X1, PTS DAUGHTER SAID THEY MAY GO DOWN TO OUTPATIENT AND TRY THERE. Performed By: #### L 500.4100, L500.4050, L100.0100 #### [facility] [address] [place], [address] CL Normal 98-108 [facility] Comment on above: Result Comment: UTO X1, PTS DAUGHTER SAID THEY MAY GO DOWN TO OUTPATIENT AND TRY THERE. Performed By: #### L 500.4100, L500.4050, L100.0100 #### [facility] [address] [place], [address] CO2 Normal 21.0-32.0 [facility] Comment on above: Result Comment: UTO X1, PTS DAUGHTER SAID THEY MAY GO DOWN TO OUTPATIENT AND TRY THERE. Performed By: #### L 500.4100, L500.4050, L100.0100 #### [facility] [address] [place], [address] CREAT,SERUM Normal 0.70-1.20 [facility] Comment on above: Result Comment: UTO X1, PTS DAUGHTER SAID THEY MAY GO DOWN TO OUTPATIENT AND TRY THERE. Performed By: #### L 500.4100, L500.4050, L100.0100 #### [facility] [address] [place], [address] eGFR Normal >60 [facility] Comment on above: Result Comment: UTO X1, PTS DAUGHTER SAID THEY MAY GO DOWN TO OUTPATIENT AND TRY THERE. Performed By: #### L 500.4100, L500.4050, L100.0100 #### [facility] [address] [place], [address] GAP Normal 5-15 [facility] Comment on above: Result Comment: UTO X1, PTS DAUGHTER SAID THEY MAY GO DOWN TO OUTPATIENT AND TRY THERE. Performed By: #### L 500.4100, L500.4050, L100.0100 #### [facility] [address] [place], [address] GLU Normal 70-99 [facility] Comment on above: Result Comment: UTO X1, PTS DAUGHTER SAID THEY MAY GO DOWN TO OUTPATIENT AND TRY THERE. Performed By: #### L 500.4100, L500.4050, L100.0100 #### [facility] [address] [place], [address] Potassium Normal 3.3-5.1 [facility] Comment on above: Result Comment: UTO X1, PTS DAUGHTER SAID THEY MAY GO DOWN TO OUTPATIENT AND TRY THERE. Performed By: #### L 500.4100, L500.4050, L100.0100 #### [facility] [address] [place], [address] T BILI Normal 0.00-1.30 [facility] Comment on above: Result Comment: UTO X1, PTS DAUGHTER SAID THEY MAY GO DOWN TO OUTPATIENT AND TRY THERE. Performed By: #### L 500.4100, L500.4050, L100.0100 #### [facility] [address] [place], [address] T PROT Normal 5.9-8.4 [facility] Comment on above: Result Comment: UTO X1, PTS DAUGHTER SAID THEY MAY GO DOWN TO OUTPATIENT AND TRY THERE. Performed By: #### L 500.4100, L500.4050, L100.0100 #### [facility] [address] [place], [address] Comprehensive Metabolic Profil Normal 133-145 [facility] Comment on above: Result Comment: UTO X1, PTS DAUGHTER SAID THEY MAY GO DOWN TO OUTPATIENT AND TRY THERE. Performed By: #### L 500.4100, L500.4050, L100.0100 #### [facility] [address] [place], [address] Lipid Profileon 01-10-2025 TRIG Normal [facility] Comment on above: Result Comment: UTO X1, PTS DAUGHTER SAID THEY MAY GO DOWN TO OUTPATIENT AND TRY THERE. The drugs N-Acetylcysteine and Metamizole may falsely depress this assay. Performed By: #### L 500.4100, L500.4050, L100.0100 #### [facility] [address] [place], [address] CHOL Normal <=200 [facility] Comment on above: Result Comment: UTO X1, PTS DAUGHTER SAID THEY MAY GO DOWN TO OUTPATIENT AND TRY THERE. Performed By: #### L 500.4100, L500.4050, L100.0100 #### [facility] [address] [place], [address] CHOL:HDL Normal [facility] Comment on above: Result Comment: UTO X1, PTS DAUGHTER SAID THEY MAY GO DOWN TO OUTPATIENT AND TRY THERE. Performed By: #### L 500.4100, L500.4050, L100.0100 #### [facility] [address] [place], [address] CLDL Normal [facility] Comment on above: Result Comment: UTO X1, PTS DAUGHTER SAID THEY MAY GO DOWN TO OUTPATIENT AND TRY THERE. Performed By: #### L 500.4100, L500.4050, L100.0100 #### [facility] [address] [place], [address] HDL Normal [facility] Comment on above: Result Comment: UTO X1, PTS DAUGHTER SAID THEY MAY GO DOWN TO OUTPATIENT AND TRY THERE. Performed By: #### L 500.4100, L500.4050, L100.0100 #### [facility] [address] [place], [address] VLDL Normal 5-40 [facility] Comment on above: Result Comment: UTO X1, PTS DAUGHTER SAID THEY MAY GO DOWN TO OUTPATIENT AND TRY THERE. Performed By: #### L 500.4100, L500.4050, L100.0100 #### [facility] [address] [place], [address] Comprehensive Metabolic Prof [facility] 07-23-2024 GFR/1.73 sq M.predicted among non-blacks MDRD (S/P/Bld) [Vol rate/Area] 56 mL/min/{1.73_m2} Low >60 [facility] Comment on above: Result Comment: mL/m in/1.73m2 CKD-EPI Creatinine Equation (2020) Performed By: #### L 500.4100, L500.4050, L100.0100 #### [facility] [address] [place], [address] L506.1001on 07-23-2024 Vitamin D 25-OH 8.8 ng/mL Low 30-100 [facility] Comment on above: Result Comment: Shayy min D Status Deficiency: <20 ng/mL (50nmol/L) Insufficiency: 20-30 ng/mL (50-75 nmol/L) Sufficiency: 30-100 ng/mL (75-250 nmol/L) Toxicity: >100 ng/mL (>250 nmol/L) Performed By: #### L 500.4100, L500.4050, L100.0100 #### [facility] [address] [place], [address] Lipid Profileon 07-23-2024 Cholesterol in LDL [Mass/Vol] 127 mg/dL Normal [facility] Comment on above: Performed By: #### L 500.4100, L500.4050, L100.0100 #### [facility] [address] [place], [address] Thyroid Stim Hormone (TSH)on 07-23-2024 TSH 1.540 uIU/mL Normal 0.300-4.200 [facility] Comment on above: Performed By: #### L 500.4100, L500.4050, L100.0100 #### [facility] [address] [place], [address] Uric Acidon 07-23-2024 URIC 3.2 mg/dL Normal 2.6-6.0 [facility] Comment on above: Result Comment: The drugs N-Acetylcysteine and Metamizole may falsely depress this assay. Performed By: #### L 500.4100, L500.4050, L100.0100 #### [facility] [address] [place], [address] Absolute neutrophil countOrd ered By: Eliu Swanson on 07-22-2024 Neutrophils (Bld) [#/Vol] 3.1 10*3/uL 2.0-7.7 [facility] Anion gap in Serum or Plasma Ordered By: Eliu Swanson on 07-22-2024 Anion gap [Moles/Vol] 16 mmol/L High 5-15 [facility] BUN/creatinine ratioOrdered By: Eliu Swanson on 07-22-2024 Urea nitrogen/Creatinine [Mass ratio] 16.8 mg/mg 10- [facility] Comment on above: Previous reported re sult: 16.7 RATIOEdited by: AUTOINS on 07/23/24:0341 AMENDED REPORT 07/23/24340 BUN/CRE previously reported as: 16.7 RATIO Basophil percentageOrdered B y: Eliu Swanson on 07-22-2024 Basophils/100 WBC (Bld) 0.7 % 0- [facility] Bilirubin, totalOrdered By: Eliu Swanson on 07-22-2024 Bilirubin [Mass/Vol] 0.72 mg/dL 0.00-1.30 [facility] CBC W/Diff, Automatedon 07-13 Absolute Lymph 2.00 X10 3/uL Normal 0.83-4.51 [facility] Comment on above: Performed By: #### L 500.4100, L500.4050, L100.0100 #### [facility] [address] [place], [address] Absolute Neut 3.1 X10 3/uL Normal 2.0-7.7 [facility] Comment on above: Performed By: #### L 500.4100, L500.4050, L100.0100 #### [facility] [address] [place], [address] Basophils/100 WBC (Bld) 0.7 % Normal 0-1 [facility] Comment on above: Performed By: #### L 500.4100, L500.4050, L100.0100 #### [facility] [address] [place], [address] Eosinophils/100 WBC (Bld) 1.4 % Normal 0-5 [facility] Comment on above: Performed By: #### L 500.4100, L500.4050, L100.0100 #### [facility] [address] [place], [address] Erythrocyte distribution width (RBC) [Ratio] 12.8 % Normal 11.6-14.6 [facility] Comment on above: Performed By: #### L 500.4100, L500.4050, L100.0100 #### [facility] [address] [place], [address] Hematocrit (Bld) [Volume fraction] 42.0 % Normal 37-47 [facility] Comment on above: Performed By: #### L 500.4100, L500.4050, L100.0100 #### [facility] [address] [place], [address] Hemoglobin (Bld) [Mass/Vol] 13.8 g/dL Normal 12.0-15.0 [facility] Comment on above: Performed By: #### L 500.4100, L500.4050, L100.0100 #### [facility] [address] [place], [address] IG% 0.200 Normal 0.0-0.9 [facility] Comment on above: Result Comment: IG% - Immature Granulocytes (promyelocytes, myelocytes and metamyelocytes) > 1% indicates that a LEFT SHIFT is Present. Performed By: #### L 500.4100, L500.4050, L100.0100 #### [facility] [address] [place], [address] Lymphocytes/100 WBC (Bld) 35.5 % Normal 19-41 [facility] Comment on above: Performed By: #### L 500.4100, L500.4050, L100.0100 #### [facility] [address] [place], [address] MCH (RBC) [Entitic mass] 30.2 pg Normal 27.0-32.0 [facility] Comment on above: Performed By: #### L 500.4100, L500.4050, L100.0100 #### [facility] [address] [place], [address] MCHC (RBC) [Mass/Vol] 32.9 g/dL Normal 32-36 [facility] Comment on above: Performed By: #### L 500.4100, L500.4050, L100.0100 #### [facility] [address] [place], [address] MCV (RBC) [Entitic vol] 91.9 fL Normal 81-99 [facility] Comment on above: Performed By: #### L 500.4100, L500.4050, L100.0100 #### [facility] [address] [place], [address] Monocytes/100 WBC (Bld) 7.6 % Normal 0-10 [facility] Comment on above: Performed By: #### L 500.4100, L500.4050, L100.0100 #### [facility] [address] [place], [address] Neutrophils/100 WBC (Bld) 54.6 % Normal 47-70 [facility] Comment on above: Performed By: #### L 500.4100, L500.4050, L100.0100 #### [facility] [address] [place], [address] Nucleated RBC (Bld) [#/Vol] 0 10*3/uL Normal 0-5 [facility] Comment on above: Performed By: #### L 500.4100, L500.4050, L100.0100 #### [facility] [address] [place], [address] Platelet mean volume (Bld) [Entitic vol] 12.2 fL High 6.2-12.0 [facility] Comment on above: Performed By: #### L 500.4100, L500.4050, L100.0100 #### [facility] [address] [place], [address] Platelets (Bld) [#/Vol] 178 10*3/uL Normal 150-450 [facility] Comment on above: Performed By: #### L 500.4100, L500.4050, L100.0100 #### [facility] [address] [place], [address] RBC (Bld) [#/Vol] 4.57 10*6/uL Normal 4.2-5.4 [facility] Comment on above: Performed By: #### L 500.4100, L500.4050, L100.0100 #### [facility] [address] [place], [address] RDW SD 43.2 fl Normal 35.1-43.9 [facility] Comment on above: Performed By: #### L 500.4100, L500.4050, L100.0100 #### [facility] [address] [place], [address] WBC (Bld) [#/Vol] 5.6 10*3/uL Normal 4.4-11.0 [facility] Comment on above: Performed By: #### L 500.4100, L500.4050, L100.0100 #### [facility] [address] [place], [address] Calculated very low density lipoprotein (VLDL) cholesterol measurementOrdered By: Eliu Swanson on 07-22-2024 VLDL Cholesterol 12 mg/dL 5-40 [facility] Carbon dioxide, total [Moles /volume] in Central venous bloodOrdered By: Eliu Swanson on 07-22-2024 CO2 [Moles/Vol] 20.9 mmol/L Low 21.0-32.0 [facility] Chloride assayOrdered By: Ciro Swanson on 07-22-2024 Chloride [Moles/Vol] 109 mmol/L High 98-108 [facility] Eosinophil percentageOrdered By: Eliu Swanson on 07-22-2024 Eosinophils/100 WBC (Bld) 1.4 % 0-5 [facility] Erythrocyte distribution wid th ratioOrdered By: Eliu Swanson 07-22-2024 Erythrocyte distribution width (RBC) [Ratio] 12.8 % 11.6-14.6 [facility] Erythrocyte distribution wid th standard deviationOrdered By: Eliu Swanson on 07-22-2024 Erythrocyte distribution width (RBC) [Entitic vol] 43.2 fL 35.1-43.9 [facility] GFR/1.73 sq M.predicted miah g non-blacks MDRD (S/P/Bld) [Vol rate/Area]Ordered By: Eliu Swanson on 07-22-2024 Estimated GFR (MDRD) Non-Af Amer 56 Low >60 [facility] Comment on above: mL/min/1.73m2 CKD-EP I Creatinine Equation (2020) Hematocrit Auto (Bld) [Volum e fraction]Ordered By: Eliu Swanson 07-22-2024 Hematocrit (Bld) [Volume fraction] 42.0 % 37-47 [facility] Hemoglobin measurementOrdere d By: Eliu Swanson 07-22-2024 Hemoglobin (Bld) [Mass/Vol] 13.8 g/dL 12.0-15.0 [facility] Immature granulocytes/100 WB C Auto (Bld)Ordered By: Eliu Swanson 07-22-2024 Immature granulocytes/100 WBC (Bld) 0.200 % 0.0-0.9 [facility] Comment on above: IG% - Immature Granu locytes (promyelocytes, myelocytes and metamyelocytes) > 1% indicates that a LEFT SHIFT is Present. LDL calc ser/plasOrdered By: Eliu Swanson on 07-22-2024 LDL Cholesterol, Calculated 127 mg/dL [facility] - Chemistry and C hemistry - challengeOrdered By: Eliu Swanson 07-22-2024 AST [Catalytic activity/Vol] 25 U/L <32 [facility] Lymphocytes Auto (Unsp spec) [#/Vol]Ordered By: Eliu Swanson on 03-10-2025 Lymphocytes (Bld) [#/Vol] 2.00 10*3/uL 0.83-4.51 [facility] Lymphocytes/100 WBC Auto (Un sp spec)Ordered By: Eliu Swanson on 07-22-2024 Lymphocytes/100 WBC (Bld) 35.5 % 19-41 [facility] MCV (mean corpuscular volume ) determinationOrdered By: Eliu Swanson on 07-22-2024 MCV (RBC) [Entitic vol] 91.9 fL 81-99 [facility] Mean corpuscular hemoglobin (MCH) determinationOrdered By: Eliu Swanson on 07-22-2024 MCH (RBC) [Entitic mass] 30.2 pg 27.0-32.0 [facility] Mean corpuscular hemoglobin concentration (MCHC) determinationOrdered By: Eliu Swanson on 07-22-2024 MCHC (RBC) [Mass/Vol] 32.9 g/dL 32-36 [facility] Mean platelet volume determi nationOrdered By: Eliu Swanson on 07-22-2024 Platelet mean volume (Bld) [Entitic vol] 12.2 fL High 6.2-12.0 [facility] Monocyte percentageOrdered B y: Eliu Swanson on 07-22-2024 Monocytes/100 WBC (Bld) 7.6 % 0-10 [facility] Neutrophil percentageOrdered By: Eliu Swanson on 07-22-2024 Neutrophils/100 WBC (Bld) 54.6 % 47-70 [facility] Nucleated red blood cell per centageOrdered By: Eliu Swanson on 07-22-2024 Nucleated RBC/100 WBC (Bld) [Ratio] 0 % 0-5 [facility] Platelet countOrdered By: Ciro Swanson on 07-22-2024 Platelets (Bld) [#/Vol] 178 10*3/uL 150-450 [facility] Potassium (Unsp spec) [Mass/ Vol]Ordered By: Eliu Swanson on 07-22-2024 Potassium [Moles/Vol] 3.7 mmol/L 3.3-5.1 [facility] RBC Auto (Bld) [#/Vol]Ordere d By: Eliu Swanson on 07-22-2024 RBC (Bld) [#/Vol] 4.57 10*6/uL 4.2-5.4 [facility] Screening total cholesterol/ high density lipoprotein (HDL) cholesterol ratioOrdered By: Eliu Swanson on 07-22-2024 Cholesterol.total/Chol esterol in HDL [Mass ratio] 2.75 {ratio} [facility] Serum creatinine measurement (mass/volume)Ordered By: Eliu Swanson on 07-22-2024 Creatinine [Mass/Vol] 1.02 mg/dL 0.70-1.20 [facility] Serum globulin measurementOr dered By: Eliu Swanson on 07-22-2024 Globulin (S) [Mass/Vol] 2.9 g/dL 2.2-4.2 [facility] Serum glucose measurement (m ass/volume)Ordered By: Eliu Swanson on 07-22-2024 Glucose [Mass/Vol] 67 mg/dL Low 70-99 [facility] Serum or plasma alanine sorensen otransferase (ALT) measurementOrdered By: Eliu Swanson 07-22-2024 ALT [Catalytic activity/Vol] 11 U/L <35 [facility] Serum or plasma albumin onelia urement (mass/volume)Ordered By: Eliu Swanson on 07-22-2024 Albumin [Mass/Vol] 4.2 g/dL 3.4-4.8 [facility] Serum or plasma albumin/glob ulin mass ratioOrdered By: Eliu Swanson 07-22-2024 Albumin/Globulin [Mass ratio] 1.5 {ratio} 0.9-2.4 [facility] Serum or plasma alkaline yodit sphatase measurementOrdered By: Eliu Swanson 07-22-2024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
[2025-03-05 08:25] VITALS: PULSE 65; RESP 16; O2SAT 97
--- NOTE | 2025-03-05 09:00 | ED.RN ---
pt resistive to care. pt has been poked by nursing staff 3 times in attempt to get an IV, and lab x2 for attempt for blood work. family educated on the need for Dr. Suarez to obtain a femoral stick for blood. pts daughters ask if there is anyone from lab that may be able to come up and try again for blood or if we can use the ultrasound machine to look for blood. this rn educates that we have used all efforts for sticks and blood so the dr would be the last effort. this rn educates family that the ultrasound machine is used for deep veins and at this time the patient is unable to tolerate peripheral sticks let alone a deep vein stick. one daughter leaves the room as ED staff assists in holding pt still for femoral stick performed by dr suarez.
[2025-03-05 09:19] LABS: Hematocrit 39.7 % (37-47); Hemoglobin 13.4 g/dL (12.0-15.0); Immature Granulocytes Count 0.030 X10^3/uL (0.0-0.0); Mean Corp Hgb Conc 33.8 g/dL (32-36); Mean Corpuscular Volume 88.0 fL (81-99); Mean Platelet Vol. 11.4 fl (6.2-12.0); NRBC Flagged by Analyzer 0 % (0-5); Platelet Count 203 K/mm3 (150-450); RBC Distribution Width CV 13.1 % (11.6-14.6); RBC Distribution Width SD 42.3 fl (35.1-43.9); Red Blood Count 4.51 M/mm3 (4.2-5.4); White Blood Count 7.9 K/mm3 (4.4-11.0)
[2025-03-05 09:36] LABS: Mucous, Urine 0 SEEN /hpf (<or=2+)
[2025-03-05 09:41] LABS: Color, Urine Yellow (Yellow); Glucose, Dipstick 50 mg/dl (Normal); Ketone-Dipstick Negative (Negative); Leukocyte Esterase-Dipstick 500 /ul (Negative); Nitrite-Dipstick Negative (Negative); Occult Blood-Urine 50 /ul (Negative); Protein-Dipstick 100 mg/dl (Negative); Specific Gravity, Urine 1.020 (1.002-1.030); Urine Bilirubin Dipstick Negative (Negative)
[2025-03-05 09:42] LABS: Red Blood Cells-Urine 0-5 SEEN /hpf (0-5); Squamous Epithelial Cells - UA 0-5 SEEN /hpf (5-10)
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
[2025-03-05 09:58] LABS: AST(SGOT) 28 U/L (<=31); Alanine Aminotransfer ALT/SGPT 17 U/L (<=34); Albumin, Serum 3.9 g/dL (3.4-4.8); Alkaline Phosphatase 79 U/L (35-104); Anion Gap 11 (5-15); BUN 10 mg/dL (4-19); BUN/Creat Ratio 9.4 RATIO (10-20); Calcium,Total 9.5 mg/dL (7.6-11.0); Carbon Dioxide 23.7 mmol/L (21.0-32.0); Chloride 105 mmol/L (98-108); Estimated Creatinine Clearance 24.62 ml/min (50-250); Globulin 2.8 g/dL (2.2-4.2); Glucose 124 mg/dL (70-99); Potassium 3.4 mmol/L (3.3-5.1)
[2025-03-05 10:00] VITALS: BP 109/68; PULSE 68; RESP 14; TEMP 36.6; O2SAT 99
[2025-03-05 10:18] VITALS: BP 109/66; PULSE 68; RESP 14; TEMP 36.6; O2SAT 99
[2025-03-05 13:14] LABS: Reflex Lactate? Y
== END 2025-03-05 10:34 | disposition home or self-care (01) ==
PROVIDERS: Emergency Provider Emergency Medicine; PCP Family Medicine Geriatric Medicine; Visit Provider Emergency Medicine
DX: F03.90 Unspecified dementia, unspecified severity, without behavioral disturbance, psychotic disturbance, mood disturbance, and anxiety (principal); I10 Essential (primary) hypertension; E78.00 Pure hypercholesterolemia, unspecified; N39.0 Urinary tract infection, site not specified; G93.40 Encephalopathy, unspecified; E87.20 Acidosis, unspecified; R79.89 Other specified abnormal findings of blood chemistry; R41.82 Altered mental status, unspecified; Z79.899 Other long term (current) drug therapy; Z90.49 Acquired absence of other specified parts of digestive tract; Z90.710 Acquired absence of both cervix and uterus
CPT/HCPCS: 71046; 80053; 81001; 83605; 85025; 87040; 99285; P9612; A4216